=== PATIENT | male | born 1950 | race Caucasian/White ===

== ENCOUNTER 2018-03-03 20:36 | Observation (INO) ==
[2018-03-04 05:54] LABS: Basophils % 0.6 % (0.1-2.0); Eosinophils # 0.1 K/mm3 (0.0-0.4); Eosinophils % 1.6 % (0.1-12.0); Hemoglobin 15.3 g/dL (14.1-18.0); Lymphocytes # 1.9 K/mm3 (0.7-4.5); Lymphocytes % 31.3 % (10-50); Mean Corpuscular HGB Conc 33.3 g/dL (31.8-35.4); Mean Corpuscular Hemoglobin 35.7 pg (27.0-31.2); Mean Corpuscular Volume 107.4 fl (80-94); Mean Platelet Volume 11.5 fl (7.4-10.4); Monocytes # 0.4 K/mm3 (0.1-1.0); Monocytes % 7.2 % (1.7-9.3); Neutrophils # 3.5 K/mm3 (1.8-7.8); Neutrophils % 59.3 % (37.0-80.0); Platelet Count 72 K/mm3 (142-424); Red Blood Count 4.28 M/mm3 (4.60-6.20); Red Cell Distribution Width 14.2 % (11.5-17.5); White Blood Count 5.9 K/mm3 (4.8-10.8)
[2018-03-04 06:04] LABS: Anion Gap 16.1 mEq/L (5-15); Calcium 8.9 mg/dL (8.5-10.1); Potassium 3.1 mmoL/L (3.5-5.1)
[2018-03-04 06:21] LABS: T4 (Thyroxine) 9.4 ug/dl (4.7-13.3); Thyroid Stimulating Hormone 4.4 uIU/ml (0.358-3.740)
--- NOTE | 2018-03-04 07:46 | Pharmacy Consult Notes ---
[facility] Pharmacy VTE Monitoring - Patient Demographics Allergies/Adverse Reactions: Patient Allergies heparin Allergy (Verified 03/03/18 21:45) Height: 1.8 m Weight: 95.254 kg - VTE Risk Labs: VTE Related Lab Results Hgb 15.3 g/dL (14.1-18.0) 03/04/18 04:40 Hct 46.0 % (42.0-52.0) 03/04/18 04:40 Plt Count 72 K/mm3 (142-424) L 03/04/18 04:40 BUN 13 mg/dL (7-18) 03/04/18 04:40 Creatinine 0.75 mg/dL (0.70-1.30) 03/04/18 04:40 Estimated Creat Clear 98 mL/min (50-200) 03/04/18 04:40 VTE Score: 2 VTE Risk Level: Very Low Risk - Prophylaxis VTE Prophylaxis Ordered?: Yes Types of VTE Prophylaxis: TEDS Knee High Location of Applied Device: Bilateral Lower Extremeties - VTE Diagnosis Confirmed Treatment or plan recommended: Continue Current Treatment
--- NOTE | 2018-03-04 08:43 | Consult Report ---
History of Present Illness Consult date: 03/04/18 Requesting physician: Luis Morris Consult reason: chest pain Chief complaint: A. flutter, chest pain Additional Medical History:: 1. CAD A. 3 vessel CABG, 2001 B. Cardiac cath, 2005, results unavailable C. Preliminary Echo, 02/2018, reduced EF (about 40%)with wall motion abnormalities 2. HTN 3. HLD, on statin 4. Tobacco use, ongoing 5. History of colon polyps with recent endoscopy this 2017 History of present illness: 67 yo WM with CAD/CABG in 2001 transferred from [facility] for chest pain and tachycardia. EKG shows A. flutter with rate in the 120-130's bpm. Symptoms of fast heart rate off and on for a week with recent adjustments in meds without significant improvement. Pt went to ER at [facility] yesterday with subsequent transfer last evening. Initial troponin is mildly elevated at 0.12. Pt has no further chest or neck discomfort this AM. He relates no symptoms prior to CABG in past. Denies diabetes but still smokes. Cardiology consulted for further evaluation. [facility] History Medical History: Reports:: Atrial Fibrillation, Hyperlipidemia, Hypertension, Palpitations Denies:: Cancer, Diabetes Mellitus Type 1, Diabetes Mellitus Type 2, MRSA Other Surgeries: Yes: CABG, Cardiac Catheterization, Cholecystectomy Amputation: No Fractures: No - *Social History Educational Level: Completed High School Smoking Status: Current every day smoker Tobacco Type: cigarettes # Packs/Day (cigarettes): 1 Alcohol Intake: current Occupational Status: retired Household Members: none - Psychiatric History Expresses thoughts of harming self/others: None Suicide Plan Description: No Plan *Family Hx:: Cancer, Thyroid Disorder Meds Home Medications Medication Instructions Recorded Confirmed Type Amlodipine Besylate 5 mg PO DAILY 03/03/18 03/03/18 History Aspirin [Aspirin 81mg EC Tab] 81 mg PO DAILY 03/03/18 03/03/18 History Atorvastatin Calcium [Atorvastatin 20 mg PO DAILY 03/03/18 03/03/18 History 20mg Tab] Cholecalciferol (Vitamin D3) 2,000 unit PO DAILY 03/03/18 03/03/18 History [Vitamin D3] L.acidoph,Paracasei, B.lactis 1 each PO DAILY 03/03/18 03/03/18 History [Probiotic] Levothyroxine Sodium 175 mcg PO DAILY 03/03/18 03/03/18 History [Levothyroxine 175mcg (0.175mg) Tab] Metoprolol Succinate 150 mg PO DAILY 03/03/18 03/03/18 History [place]-3/Dha/Epa/Fish Oil [[place] 3 520 mg PO DAILY 03/03/18 03/03/18 History 500 Softgel] Ramipril 10 mg PO DAILY 03/03/18 03/03/18 History hydroCHLOROthiazide [HCTZ 12.5mg 12.5 mg PO DAILY 03/03/18 03/03/18 History cap] raNITIdine HCl [Ranitidine HCl] 150 mg PO BID 03/03/18 03/03/18 History Allergies Allergy/AdvReac Type Severity Reaction Status Date / Time heparin Allergy Verified 03/03/18 21:45 Review of Systems - *Cardiovascular Reports chest pain - *Respiratory Reports shortness of breath with activity - *Gastrointestinal Reports heartburn, Reports loose stools - *Genitourinary Denies blood in urine - *Musculoskeletal Denies joint pain Exam Vital signs and Labs for Last 24 Hours: Temp Pulse Resp BP Pulse Ox 98.2 F 92 H 18 146/94 H 98 03/04/18 00:00 03/04/18 04:00 03/04/18 04:00 03/04/18 04:00 03/04/18 04:00 Laboratory Results - last 24 hr 03/04/18 04:40: Troponin I 0.12 H 03/04/18 04:40: WBC 5.9, RBC 4.28 L, Hgb 15.3, Hct 46.0, MCV 107.4 H, MCH 35.7 H , MCHC 33.3, RDW 14.2, Plt Count 72 L, MPV 11.5 H, Neut % (Auto) 59.3, Lymph % (Auto) 31.3, [place] % (Auto) 7.2, Eos % (Auto) 1.6, Baso % (Auto) 0.6, Neut # (Auto) 3.5, Lymph # (Auto) 1.9, [place] # (Auto) 0.4, Eos # (Auto) 0.1, Baso # (Auto) 0.0 03/04/18 04:40: Sodium 137, Potassium 3.1 L, Chloride 99, Carbon Dioxide 25, An ion Gap 16.1 H, BUN 13, Creatinine 0.75, Estimated Creat Clear 98, Estimated GFR 104, Est GFR ( Amer) 126, Glucose 90, Calcium 8.9, Magnesium 2.0, Triglycerides 254 H, Cholesterol 128 L, LDL Cholesterol 35, VLDL Cholesterol 51 H, HDL Cholesterol 42, Cholesterol/HDL Ratio 3.0 03/04/18 04:40: TSH 4.40 H, Thyroxine (T4) 9.4 I & O for Last 24 hours: Intake & Output 03/01/18 03/02/18 03/03/18 03/04/18 11:59 11:59 11:59 11:59 Intake Total 218 / 218 Output Total 250 / 250 Balance -32 / -32 Weight 210 lb - *Routine Neck Exam Present: supple, carotid bruit. Absent: JVD - *Routine Respiratory Exam Present: decreased breath sounds, CTA bilaterally. Absent: accessory muscle use, rales, rhonchi, wheezes - *Routine Cardiovascular Exam Present: RRR, murmur, tachycardia. Absent: gallop, rubs Comments: physiologic split S2 - *Routine Abdominal Exam Present: soft. Absent: tenderness, distended, guarding - *Routine Extremities Exam Absent: edema, calf tenderness - *Routine Neurological Exam Present: alert, oriented X3, moving all extremities Assessment and Plan (1) Atrial flutter with rapid ventricular response Current visit: Yes Status: Acute Category: Medical Code(s): I48.92 - Unspecified atrial flutter (2) Acute [place] Current visit: Yes Status: Acute Category: Medical Code(s): I21.9 - Acute myocardial infarction, unspecified (3) Hypertension Current visit: Yes Status: Acute Category: Medical Code(s): I10 - Essential (primary) hypertension (4) Hyperlipidemia Current visit: Yes Status: Acute Category: Medical Code(s): E78.5 - Hy perlipidemia, unspecified (5) Diarrhea Current visit: Yes Status: Acute Category: Medical Code(s): R19.7 - Diarrhea, unspecified (6) History of coronary artery bypass graft x 3 Current visit: Yes Status: Acute Category: Surgical Code(s): Z95.1 - Presence of aortocoronary bypass graft (7) RBBB Current visit: Yes Status: Acute Category: Medical Code(s): I45.10 - Unspecified right bundle-branch block (8) Cardiomyopathy Current visit: Yes Status: Acute Category: Medical Code(s): I42.9 - Cardiomyopathy, unspecified - Assessment and plan all Dx Assessment and Plan for all problems:: 1. Will switch to bisoprolol for rate control. Stop lopressor 2. Recommend LHC due to elevated troponin in setting of known CAD with CABG 16 yrs ago 3. Immodium for diarrhea 4. Resume other home meds 5. Echo results pending but preliminary shows reduced with wall motion abnormali ties likely related to CABG
--- NOTE | 2018-03-04 16:11 | History & Physical Report ---
*Admission Date: 03/04/18 *Chief complaint: chest pain *History of present illness: 67 yo WM with CAD/CABG in 2001 transferred from [facility] for chest pain and tachycardia. EKG shows A. flutter with rate in the 120-130's bpm. Symptoms of fast heart rate off and on for a week with recent adjustments in meds without significant improvement. Pt went to ER at [facility] yesterday with subsequent transfer last evening. Initial troponin is mildly elevated at 0.12. Pt has no further chest or neck discomfort this AM. He relates no symptoms prior to CABG in past. Denies diabetes but still smokes. Cardiology consulted for further evaluation. [facility] History I have reviewed the patient's past medical history: Yes Medical History: Reports:: Atrial Fibrillation, Hyperlipidemia, Hypertension, Palpitations Denies:: Cancer, Diabetes Mellitus Type 1, Diabetes Mellitus Type 2, MRSA Other Surgeries: Yes: CABG, Cardiac Catheterization, Cholecystectomy Amputation: No Fractures: No - *Social History Educational Level: Completed High School Smoking Status: Current every day smoker Tobacco Type: cigarettes # Packs/Day (cigarettes): 1 Alcohol Intake: current Occupational Status: retired Household Members: none - Psychiatric History Expresses thoughts of harming self/others: None Suicide Plan Description: No Plan *Family Hx:: Cancer, Thyroid Disorder Review of Systems - Review of Systems Review of systems:: pertinent systems reviewed and negative unless documented below - Constitutional Denies body ache(s) - Eyes Denies bulging eyes - ENT Denies bleeding gums - *Cardiovascular Reports chest pain at rest, Reports chest pain with activity, Reports shortness of breath, Reports radiating jaw, neck or arm pain, Denies rapid, pounding, or irregular heartbeat - *Respiratory Reports shortness of breath with activity - *Gastrointestinal Denies change in bowel habits - *Genitourinary Denies urinary urgency - *Musculoskeletal Denies body aches - Integumentary/Breasts Denies rash - *Neurologic Denies localized weakness - Psychiatric Denies anxiety - Endocrine Denies increased thirst - Hematologic/Lymphatic Denies enlarged lymph nodes - Allergic/Immunologic Denies tongue swelling Meds Home Medications Medication Instructions Recorded Confirmed Type Amlodipine Besylate 5 mg PO DAILY 03/03/18 03/03/18 History Aspirin [Aspirin 81mg EC Tab] 81 mg PO DAILY 03/03/18 03/03/18 History Atorvastatin Calcium [Atorvastatin 20 mg PO DAILY 03/03/18 03/03/18 History 20mg Tab] Cholecalciferol (Vitamin D3) 2,000 unit PO DAILY 03/03/18 03/03/18 History [Vitamin D3] L.acidoph,Paracasei, B.lactis 1 each PO DAILY 03/03/18 03/03/18 History [Probiotic] Levothyroxine Sodium 175 mcg PO DAILY 03/03/18 03/03/18 History [Levothyroxine 175mcg (0.175mg) Tab] Metoprolol Succinate 150 mg PO DAILY 03/03/18 03/03/18 History [place]-3/Dha/Epa/Fish Oil [[place] 3 520 mg PO DAILY 03/03/18 03/03/18 History 500 Softgel] Ramipril 10 mg PO DAILY 03/03/18 03/03/18 History hydroCHLOROthiazide [HCTZ 12.5mg 12.5 mg PO DAILY 03/03/18 03/03/18 History cap] raNITIdine HCl [Ranitidine HCl] 150 mg PO BID 03/03/18 03/03/18 History Allergies Allergy/AdvReac Type Severity Reaction Status Date / Time heparin Allergy Verified 03/03/18 21:45 Exam Vital signs and Labs for Last 24 Hours: Temp Pulse Resp BP Pulse Ox 97.6 F 119 H 12 200/65 H 96 03/04/18 14:30 03/04/18 15:30 03/04/18 15:30 03/04/18 15:30 03/04/18 15:30 Laboratory Results - last 24 hr 03/04/18 04:40: Troponin I 0.12 H 03/04/18 04:40: WBC 5.9, RBC 4.28 L, Hgb 15.3, Hct 46.0, MCV 107.4 H, MCH 35.7 H , MCHC 33.3, RDW 14.2, Plt Count 72 L, MPV 11.5 H, Neut % (Auto) 59.3, Lymph % (Auto) 31.3, [place] % (Auto) 7.2, Eos % (Auto) 1.6, Baso % (Auto) 0.6, Neut # (Auto) 3.5, Lymph # (Auto) 1.9, [place] # (Auto) 0.4, Eos # (Auto) 0.1, Baso # (Auto) 0.0 03/04/18 04:40: Sodium 137, Potassium 3.1 L, Chloride 99, Carbon Dioxide 25, Anion Gap 16.1 H, BUN 13, Creatinine 0.75, Estimated Creat Clear 98, Estimated GFR 104, Est GFR ( Amer) 126, Glucose 90, Calcium 8.9, Magnesium 2.0, Triglycerides 254 H, Cholesterol 128 L, LDL Cholesterol 35, VLDL Cholesterol 51 H, HDL Cholesterol 42, Cholesterol/HDL Ratio 3.0 03/04/18 04:40: TSH 4.40 H, Thyroxine (T4) 9.4 I & O for Last 24 hours: Intake & Output 03/02/18 03/03/18 03/04/18 03/05/18 11:59 11:59 11:59 11:59 Intake Total 218 / 218 Output Total 250 / 250 Balance -32 / -32 Weight 210 lb - *Routine HEENT Exam Head: Present: normocephalic Eye: Present: PERRL ENT: Present: mucous membranes moist - *Routine Neck Exam Present: supple. Absent: lymphadenopathy - *Routine Respiratory Exam Present: CTA bilaterally - *Routine Cardiovascular Exam Present: irregular rhythm - *Routine Abdominal Exam Present: soft, normoactive bowel sounds. Absent: tenderness - *Routine Extremities Exam Absent: cyanosis, clubbing, edema - *Routine Skin Exam Present: warm. Absent: rash - *Routine Neurological Exam Present: alert, oriented X3 Assessment and Plan (1) Atrial flutter with rapid ventricular response Current visit: Yes Status: Acute Category: Medical Code(s): I48.92 - Unspecified atrial flutter (2) Acute [place] Current visit: Yes Status: Acute Category: Medical Code(s): I21.9 - Acute myocardial infarction, unspecified (3) Hypertension Current visit: Yes Status: Acute Category: Medical Code(s): I10 - Essential (primary) hypertension (4) Hyperlipidemia Current visit: Yes Status: Acute Category: Medical Code(s): E78.5 - Hyperlipidemia, unspecified (5) Diarrhea Current visit: Yes Status: Acute Category: Medical Code(s): R19.7 - Diarrhea, unspecified (6) History of coronary artery bypass graft x 3 Current visit: Yes Status: Acute Category: Surgical Code(s): Z95.1 - Presence of aortocoronary bypass graft (7) RBBB Current visit: Yes Status: Acute Category: Medical Code(s): I45.10 - Unspecified right bundle-branch block (8) Cardiomyopathy Current visit: Yes Status: Acute Category: Medical Code(s): I42.9 - Cardiomyopathy, unspecified - Assessment and plan all Dx Assessment and Plan for all problems:: rounded with michela all orders per michela
[2018-03-05 06:04] LABS: Hematocrit 45.2 % (42.0-52.0); Hemoglobin 14.9 g/dL (14.1-18.0)
[2018-03-05 08:12] LABS: Calcium 8.6 mg/dL (8.5-10.1)
--- NOTE | 2018-03-05 08:47 | Discharge Summary ---
General - General Admission date:: 03/04/18 Discharge date: 03/05/18 HPI HPI: 67 yo WM with CAD/CABG in 2001 transferred from [facility] for chest pain and tachycardia. EKG shows A. flutter with rate in the 120-130's bpm. Symptoms of fast heart rate off and on for a week with recent adjustments in meds without significant improvement. Pt went to ER at [facility] yesterday with subsequent transfer last evening. Initial troponin is mildly elevated at 0.12. Pt has no further chest or neck discomfort this AM. He relates no symptoms prior to CABG in past. Denies diabetes but still smokes. Cardiology consulted for further evaluation. Hospital Course Hospital Course: pt was admitted on on tele and was seen by cyril Fox. 3 vessel CABG, 2001 B. Cardiac cath, 2005, results unavailable C. Preliminary Echo, 02/2018, reduced EF (about 40%)with wall motion abnormalities 2. HTN 3. HLD, on statin 4. Tobacco use, ongoing 5. History of colon polyps with recent endoscopy this 2017 History of present illness: 67 yo WM with CAD/CABG in 2001 transferred from [facility] for chest pain and tachycardia. EKG shows A. flutter with rate in the 120-130's bpm. Symptoms of fast heart rate off and on for a week with recent adjustments in meds without significant improvement. Pt went to ER at [facility] yesterday with subsequent transfer last evening. Initial troponin is mildly elevated at 0.12. Pt has no further chest or neck discomfort this AM. He relates no symptoms prior to CABG in past. Denies diabetes but still smokes. Cardiology consulted for further evaluatio pt had recommendation -ll switch to bisoprolol for rate control. Stop lopressor 2. Recommend LHC due to elevated troponin in setting of known CAD with CABG 16 yrs ago 3. Immodium for diarrhea 4. Resume other home meds 5. Echo results pending but preliminary shows reduced with wall motion abnormalities likely related to CABG pt underwent cath- The left main artery has distal concentric 80% stenosis 2. The left anterior descending artery has proximal 20% stenosis then occluded at mid vessel after second septal contracting analyst 3. The circumflex artery ostially occluded 4. The right coronary artery has proximal 90% stenosis and then occluded at mid vessel 5. The GALLEGOS ventriculogram reveals preserved ejection fraction estimated at 55-60% 6. The left ventricular end-diastolic pressure 10 mmHg 7. The left internal mammary artery iswidely patent to the mid LAD 8. The saphenous vein graft to the circumflex artery is a large caliber graft with a distal 80-90% concentric stenosis. This obtuse marginal artery anastomosis on to a first obtuse marginal artery and then backfills to large obtuse marginal arteries 9. The saphenous vein graft to the is a widely patent graft with a proximal 30-40% nonflow limiting stenosis. This supplies a single posterior descending artery with no backfilling of the [place] right coronary artery IMPRESSION: 1. Coronary artery disease as described above 2. Severe disease in the saphenous vein graft supplying the large dominant circumflex artery 3. Successful stenting of the saphenous vein graft supplying the dominant circumflex artery severe disease reduced to 0% with 1 drug-eluting stent 4. Patent DUNN to the LAD 5. Patent saphenous vein graft with mild to moderate nonflow limiting disease in the proximal graft disease supplying the moderate-sized posterior descending artery 6. Preserved ejection fraction 7. Normal left ventricular end-diastolic pressure spirin and Plavix plus Xarelto 20 mg daily for one month then discontinue the aspirin 2. Cardiac rehabilitation 3. Avoidance of tobacco products 4. Risk factor modification 5. Control of atrial fibrillation flutter with rate controlling medications 6. Follow-up with primary block inspector Dr. Yisel Barnett in one month pt feels better today and will be d/c to follow with pcp and card Objective Vital signs: Temp Pulse Resp BP Pulse Ox 98.1 F 100 H 14 141/93 H 95 03/05/18 07:41 03/05/18 08:00 03/05/18 07:41 03/05/18 07:41 03/05/18 07:41 no acute distress, average body habitus - *Routine HEENT Exam Head: Present: normocephalic Eye: Present: EOMI, PERRL ENT: Present: mucous membranes dry - *Routine Neck Exam Present: supple, lymphadenopathy. Absent: JVD - *Routine Respiratory Exam Present: CTA bilaterally - *Routine Cardiovascular Exam Present: RRR, murmur - *Routine Abdominal Exam Present: soft - *Routine Extremities Exam Present: full ROM - *Routine Skin Exam Present: intact - *Routine Neurological Exam Present: alert, oriented X3, CN II-XII intact - Routine Psychiatric Exam Present: normal affect Results Labs on day of discharge: Labs from last 24 hours 03/05/18 03/05/18 05:35 05:35 Hgb 14.9 Hct 45.2 Sodium 138 Potassium 4.0 D Chloride 103 Carbon Dioxide 24 Anion Gap 15.0 BUN 14 Creatinine 0.82 Estimated Creat Clear 100 Estimated GFR 94 Est GFR ( Amer) 114 Glucose 99 Calcium 8.6 DS: Diagnosis - Discharge Diagnosis (1) Atrial flutter with rapid ventricular response Status: Acute (2) Acute [place] Status: Acute (3) Hypertension Status: Acute (4) Hyperlipidemia Status: Acute (5) Diarrhea Status: Acute (6) History of coronary artery bypass graft x 3 Status: Acute (7) RBBB Status: Acute (8) Cardiomyopathy Status: Acute Discharge Plan - Patient Discharge Instructions DIET: continue same diet Patient Instructions: Heart Attack, Cardiomyopathy, Cardiac Catheterization, Coronary Stenting, High Blood Pressure, Atrial Flutter, DI for Atrial Flutter, DI for Cardiac Catheterization, DI for Coronary Stenting, DI for Cardiomyopathy, DI for High Blood Pressure, DI for Surgical Site Infection, Surgical Site Infection, How to Quit Smoking - Follow up Plan Follow up with: Perfecto Foster MD [Staff Physician] - 03/11/18 12:40 pm Disposition: Home, Self-Senior Living Medications: Home Medications Medication Instructions Recorded Confirmed Type Amlodipine Besylate 5 mg PO DAILY 03/03/18 03/03/18 History Aspirin [Aspirin 81mg EC Tab] 81 mg PO DAILY 03/03/18 03/03/18 History Atorvastatin Calcium [Atorvastatin 20 mg PO DAILY 03/03/18 03/03/18 History 20mg Tab] Cholecalciferol (Vitamin D3) 2,000 unit PO DAILY 03/03/18 03/03/18 History [Vitamin D3] L.acidoph,Paracasei, B.lactis 1 each PO DAILY 03/03/18 03/03/18 History [Probiotic] Levothyroxine Sodium 175 mcg PO DAILY 03/03/18 03/03/18 History [Levothyroxine 175mcg (0.175mg) Tab] Metoprolol Succinate 150 mg PO DAILY 03/03/18 03/03/18 History [place]-3/Dha/Epa/Fish Oil [[place] 3 520 mg PO DAILY 03/03/18 03/03/18 History 500 Softgel] Ramipril 10 mg PO DAILY 03/03/18 03/03/18 History hydroCHLOROthiazide [HCTZ 12.5mg 12.5 mg PO DAILY 03/03/18 03/03/18 History cap] raNITIdine HCl [Ranitidine HCl] 150 mg PO BID 03/03/18 03/03/18 History Prescriptions/Medication Reconciliation: New Bisoprolol Fumarate [Zebeta 5mg tablet] 10 mg PO BID #60 tablet Nicotine [Nicoderm 21mg/24hr patch] 21 mg TD DAILY #30 patch.td24 Rivaroxaban [Xarelto 10mg tablet] 20 mg PO QPMWM #30 tablet Ramipril [Altace 5mg capsule] 5 mg PO BID capsule Continue Cholecalciferol (Vitamin D3) [Vitamin D3] 2,000 unit PO DAILY Aspirin [Aspirin 81mg EC Tab] 81 mg PO DAILY Levothyroxine Sodium [Levothyroxine 175mcg (0.175mg) Tab] 175 mcg PO DAILY Atorvastatin Calcium [Atorvastatin 20mg Tab] 20 mg PO DAILY Ramipril 10 mg PO DAILY L.acidoph,Paracasei, B.lactis [Probiotic] 1 each PO DAILY [place]-3/Dha/Epa/Fish Oil [[place] 3 500 Softgel] 520 mg PO DAILY raNITIdine HCl [Ranitidine HCl] 150 mg PO BID Discontinued Metoprolol Succinate 150 mg PO DAILY hydroCHLOROthiazide [HCTZ 12.5mg cap] 12.5 mg PO DAILY Amlodipine Besylate 5 mg PO DAILY
--- NOTE | 2018-03-05 08:53 | Progress Note ---
Subjective Date: 03/05/18 Time: 08:49 Principal diagnosis: Acute SC Interval history: 67-year-old white male in bed in no acute distress. States he feels much better this morning. No further diarrhea. He is ready to go home. Telemetry still shows atrial flutter with controlled rate in the 70s and 90s beats per minute range Exam Vital signs and Labs for Last 24 Hours: Temp Pulse Resp BP Pulse Ox 98.1 F 100 H 14 141/93 H 95 03/05/18 07:41 03/05/18 08:00 03/05/18 07:41 03/05/18 07:41 03/05/18 07:41 Laboratory Results - last 24 hr 03/05/18 05:35: Hgb 14.9, Hct 45.2 03/05/18 05:35: Sodium 138, Potassium 4.0 D, Chloride 103, Carbon Dioxide 24, Anion Gap 15.0, BUN 14, Creatinine 0.82, Estimated Creat Clear 100, Estimated GFR 94, Est GFR ( Amer) 114, Glucose 99, Calcium 8.6 I & O for Last 24 hours: Intake & Output 03/02/18 03/03/18 03/04/18 03/05/18 11:59 11:59 11:59 11:59 Intake Total 218 / 218 2110 / 2110 Output Total 250 / 250 400 / 400 Balance -32 / -32 1710 / 1710 Weight 210 lb 214 lb - *Routine Respiratory Exam Present: CTA bilaterally. Absent: accessory muscle use, rales, rhonchi, wheezes - *Routine Cardiovascular Exam Present: RRR, irregular rhythm. Absent: murmur, gallop, rubs - *Routine Extremities Exam Absent: edema, calf tenderness Progress Note: A&P (1) Atrial flutter with rapid ventricular response Status: Acute Current Visit: Yes (2) Acute [place] Status: Acute Current Visit: Yes (3) Hypertension Status: Acute Current Visit: Yes (4) Hyperlipidemia Status: Acute Current Visit: Yes (5) Diarrhea Status: Acute Current Visit: Yes (6) History of coronary artery bypass graft x 3 Status: Acute Current Visit: Yes (7) RBBB Status: Acute Current Visit: Yes (8) Cardiomyopathy Status: Acute Current Visit: Yes Assessment and Plan for All Diagnoses:: 1. Patient did receive a stent to his vein graft to the circumflex artery system. He should be on aspirin and Plavix for 30 days and then discontinue aspirin due to Xarelto therapy for atrial flutter. 2. Atrial flutter with controlled ventricular response, on bisoprolol and Xarelto therapy consider STEPHIE/cardioversion in 30 days. 3. Recommendation for home medications Ramipril 5 mg twice daily for 10 mg once daily Bisoprolol 10 mg twice daily Xarelto 20 mg daily with largest meal of the day Aspirin 1 mg daily Plavix 75 mg daily Atorvastatin 20 mg daily 4. Follow-up with Dr. Barnett in 1 week for wound check.
== END 2018-03-05 09:35 | disposition home or self-care (01) ==
LOC: ICU
PROVIDERS: ADMIT Emergency Medicine; ATTEND Emergency Medicine

== ENCOUNTER 2018-03-19 13:40 | Outpatient (RCR) | payer MEDICARE, SELFPAY | END 2018-07-09 08:54 | disposition home or self-care (01) | LOC: PT 13:40 | PROVIDERS: Visit Provider Internal Medicine | DX: Z95.5 Presence of coronary angioplasty implant and graft (principal) | CPT/HCPCS: 93798 ==

== ENCOUNTER → 2018-03-31 14:15 | Outpatient (CLI) | payer MEDICARE, SELFPAY ==
--- NOTE | 2018-03-31 14:29 | XR_ITS ---
XR chest 2V HISTORY: Cough. ITS.REASON: SOB, Exertional hypemia ORDERING PHYSICIAN: NATALIYA Braden PATIENT AGE: 67 years Technique: 2 view chest PA lateral .: COMPARISON is made to 03/04/2018 AP CXR FINDINGS: Small bilateral pleural effusions right greater than left. Fluid tracks along the lateral right chest with some fluid within the major & minor fissure. On right. There is a hazy infiltrate likely present at the right midlung and right base involving right lower lobe. Likely pneumonic infiltrate. The heart is normal size. Previous sternotomy and CABG. Tortuous descending aorta again noted. Ivone and mediastinal structures unremarkable. Chest wall unremarkable IMPRESSION-------- Small bilateral pleural effusions right more evident the left Minimal pneumonic infiltrate likely present mainly involving the right lung base but it extending to the right midlung, right perihilar region.. Correlation required.
[2018-03-31 15:42] LABS: Anion Gap 14.8 mEq/L (5-15); Blood Urea Nitrogen 14 mg/dL (7-18); Calcium 8.7 mg/dL (8.5-10.1); Carbon Dioxide 24 mmol/L (21.0-32.0); Chloride 105 mmol/L (98-107); Creatinine,Serum 1.04 mg/dL (0.70-1.30); Estimated Glomerular Filt Rate 71 ml/min (>60); GFR (African American) 86 ML/MIN (>60); Glucose 86 mg/dL (74-106); Potassium 3.8 mmoL/L (3.5-5.1); Sodium 140 mmol/L (136-145)
== END ==
PROVIDERS: Visit Provider Physician Assistant
DX: R06.02 Shortness of breath (principal); R09.02 Hypoxemia
CPT/HCPCS: 36415; 71046; 80048; 83880

== ENCOUNTER → 2018-04-17 07:14 | Outpatient (CLI) | payer MEDICARE, SELFPAY ==
--- NOTE | 2018-04-17 07:19 | AS_ITS ---
Renal Arterial Duplex Indications: 405.91 Unspecified renovascular hypertension. IMPRESSIONS 1. The right renal artery appears normal. 2. The left renal artery appears normal. 3. Elevated RI's bilateral kidneys, 0.8. History: Risk factors: Hypertension. Coronary artery disease. Prior angiography/angioplasty. Complete renal arterial duplex. Duplex scan and Doppler flow study including spectral analysis, color and chatman scale imaging. Height: Height: 180.3cm. Height: 71in. Weight: Weight: 95.3kg. Weight: 209.6lb. Body mass index: BMI: 29.3kg/m^2. Body surface area: BSA: 2.21m^2. Location: Vascular laboratory. Patient status: Outpatient. Tables: Arterial flow: + +--------+--------+ Location V sys V ed + +--------+--------+ Right renal - proximal 113cm/s 20.5cm/s + +--------+--------+ Right renal - mid 88.2cm/s 19.1cm/s + +--------+--------+ Right renal - distal 72.4cm/s 19.1cm/s + +--------+--------+ Left renal - proximal 138cm/s 25.9cm/s + +--------+--------+ Left renal - mid 177cm/s 39.6cm/s + +--------+--------+ Left renal - distal 172cm/s 34.8cm/s + +--------+--------+ Renal anatomy: + +-------+-------+ Left Right + +-------+-------+ Long axis 12.76cm 12.06cm + +-------+-------+ Short axis 6.74cm 6.74cm + +-------+-------+ Cortical thickness 2cm 1.7cm + +-------+-------+ Velocity ratios: + +-----+ V sys + +-----+ Right renal/aortic 1.9 + +-----+ Left renal/aortic 1.2 + +-----+ (Report amended ) Electronically signed by: Cristo Aden [id number]
== END ==
PROVIDERS: PCP Family Medicine; Visit Provider Nurse Practitioner Family
DX: I10 Essential (primary) hypertension (principal); I15.0 Renovascular hypertension
CPT/HCPCS: 93976

== ENCOUNTER → 2018-07-22 13:09 | Outpatient (CLI) | payer MEDICARE, SELFPAY ==
--- NOTE | 2018-07-22 13:16 | CT_ITS ---
CT lung screening EXAM: CT LUNG LOW DOSE WO CONTRAST HISTORY: 46 pack year smoking history asymptomatic for lung cancer ITS.REASON: CURRENT TOBACCO USE ORDERING PHYSICIAN: Yazan Castellanos MD PATIENT AGE: 67 years COMPARISON: None TECHNIQUE: The exam was performed on a GE Light Speed [address] scanner using 2.90 mGy CTDI. A low dose helical CT CHEST was performed on a multi-detector scanner. All CT scans at the facility use one or more dose reduction, viz: automated exposure control, ma/kV adjustment per patient size (including targeted exams where dose is matched to indication, i.e. head), or iterative reconstruction technique. The LDCT was performed in a facility that meets the criteria for the screening program. Data regarding this exam was submitted to ACR which is an approved registry. The order for this exam indicates that it came as a result of a lung cancer screening counseling shard decision-making visit that included all the elements required of such a visit including smoking cessation. The radiologist interpreting this exam meets the [facility] criteria for the LDCT lung cancer screening program. The exam is reported using the Lung-RADS classification scale and reported to the ACR registry. NOTE: This study was performed for the specific purposes of lung cancer screening and is not an alternative to diagnostic chest CT. RADIATION DOSE: CTDI vol(CT dose Index-volume) = 2.90mG DLP (Dose Length Product) = 108.12 mGcm FINDINGS: There has been a prior CABG. Coronary artery calcifications and tortuosity/ectasia of the thoracic aorta is noted. Changes of COPD with mild coarsening of bronchovascular markings. There is a nodule present in the right minor fissure at 5 mm x 6 mm but with some fissural indentation. 6 mm nodule right middle lobe. 6 mm nodule right upper lobe centrally S 4 #33. 7 mm nodule left lower lobe S4 #1. 5 mm nodule left upper lobe s 4 #33. There are centrilobular emphysematous changes in the lower lobes. Mild gynecomastia Degenerative disc disease thoracic spine with mild ridging posteriorly at T4-T5. IMPRESSION: 1. Lung RADS Category: 3, probably benign 2. Other findings: COPD, coronary artery disease, centrilobular edema RECOMMENDATIONS: [address] follow-up
== END ==
PROVIDERS: PCP Family Medicine; Visit Provider Family Medicine
DX: Z12.2 Encounter for screening for malignant neoplasm of respiratory organs (principal); Z87.891 Personal history of nicotine dependence

== ENCOUNTER 2019-03-14 17:34 | Inpatient (IN) ==
--- NOTE | 2019-03-14 17:36 | Emergency Department Note ---
ED Disposition Clinical Impression: Acute coronary syndrome Disposition: Admitted as Observation Condition on Discharge: Fair Referrals: Provider,Referral, [Referring] - - Critical Care Critical Care Time: No Attestation: On , the high probability of a clinically significant, sudden or life threate prabhjot deterioration of the following system(s) required my full and direct attention, intervention and personal management. The time I documented below is in addition to time spent performing reported procedures but includes the following listed in this critical care notation. Medical Decision Making - Christo Inquiry Pt receiving controlled substance: No Vital Signs: 03/14/19 17:32 03/14/19 17:56 Temperature 98.7 F Temperature Source Oral Pulse Rate [Right Radial] 84 65 Respiratory Rate 18 16 Blood Pressure [Right Arm] 171/71 H 172/79 H Blood Pressure Mean [Right Arm] 104 110 Blood Pressure Source [Right Arm] Automatic Cuff Automatic Cuff Blood Pressure Position [Right Arm] Sitting Supine 02 Sat by Pulse Oximetry 97 95 Oxygen Delivery Method Room Air Room Air - Lab Data Lab Results 03/14/19 17:30: WBC 5.1, RBC 3.87 L, Hgb 13.6 L, Hct 41.0 L, MCV 106.0 H, MCH 35.0 H, MCHC 33.0, RDW 13.6, Plt Count 82 L, MPV 10.9 H, Neut % (Auto) 63.5, Lymph % (Auto) 24.8, [place] % (Auto) 8.9, Eos % (Auto) 2.1, Baso % (Auto) 0.7, Neut # (Auto) 3.2, Lymph # (Auto) 1.3, Barren # (Auto) 0.5, Eos # (Auto) 0.1, Baso # (Auto) 0.0 03/14/19 17:30: Sodium 144, Potassium 3.3 L, Chloride 107, Carbon Dioxide 24, Anion Gap 16.3 H, BUN 15, Creatinine 1.32 H, Estimated Creat Clear 70, Estimated GFR 54 L, Est GFR ( Amer) 65, Glucose 104, Calcium 9.2, Troponin I 0.07 H Result diagrams: 03/14/19 17:30 03/14/19 17:30 Orders (Tests/Meds): ED MEDICATIONS Discontinued Medications Generic Name Dose Route Start Last Admin Trade Name Freq PRN Reason Stop Dose Admin Nitroglycerin 1 gm 03/14/19 17:48 03/14/19 17:59 Nitroglycerin 1 Inch Oint Udp TD 03/14/19 17:49 1 gm ONCE ONE Administration ORDERS Category Date Time Status XR chest 2V Stat Exams 03/14/19 17:39 Taken BMP [Basic Metabolic Panel] Stat Lab 03/14/19 17:30 Results TSH [Thyroid Stimulating Hormone] Stat Lab 03/14/19 17:30 Results Troponin I Q3H Lab 03/14/19 20:45 Ordered Troponin I Q3H Lab 03/14/19 23:45 Ordered Troponin I Stat Lab 03/14/19 17:30 Results - Radiology Data #1 Image(s): Chest Image Reviewed: Yes I reviewed the patient's radiology image Prior coronary artery bypass grafting, no acute process - ECG Data Tracing #1 EKG interpreted by Maurilio Jorge MD: Rhythm: Atrial fibrillation Rate: 71 [place]: Left Ectopy: none Conduction: Right bundle branch block, chronic ST Segment Changes: none T Wave Changes: none Q Waves: none No evidence of acute ischemia or injury Baseline artifact present, but I consider the EKG adequate for accurate interpretation. - Physician Consults Physician Consulted: Krsitin Time: 18:11 Reason -: Cardiology Eval/Care Comment/Response: Admit, serial cardiac enzymes. Nitropaste. Additional Consult: Jesus Castellanos Time: 18:15 Reason -: Admission Comment/Response: Agrees to admit the patient to the hospital. We discussed the patient's clinical information, including history, exam, laboratory and radiology results and ED course. Per hospital procedure, I will write temporary bridge inpatient orders on the patient. Specific orders requested by the admitting physician: Per cardiology - GEE Score for Non-Stemi Age of Patient: 60-69 years old Heart Rate: 70-89 bpm Systolic Blood Pressure: 160-199 mmHg Serum Creatinine: 1.20-1.59 mg/dl CHF [place] Class: I-No CHF Other Risk Factors: Elevated Cardiac Enzymes or Biomarkers Non-Stemi Risk Score: 101 Medical Decision Narrative: Prior heart cath: ANGIOGRAPHIC RESULTS: 1. The left main artery has distal concentric 80% stenosis 2. The left anterior descending artery has proximal 20% stenosis then occluded at mid vessel after second septal education program associate 3. The circumflex artery ostially occluded 4. The right coronary artery has proximal 90% stenosis and then occluded at mid vessel 5. The GALLEGOS ventriculogram reveals preserved ejection fraction estimated at 55-60% 6. The left ventricular end-diastolic pressure 10 mmHg 7. The left internal mammary artery iswidely patent to the mid LAD 8. The saphenous vein graft to the circumflex artery is a large caliber graft with a distal 80-90% concentric stenosis. This obtuse marginal artery anastomosis on to a first obtuse marginal artery and then backfills to large obtuse marginal arteries 9. The saphenous vein graft to the is a widely patent graft with a proximal 30-40% nonflow limiting stenosis. This supplies a single posterior descending artery with no backfilling of the [place] right coronary artery IMPRESSION: 1. Coronary artery disease as described above 2. Severe disease in the saphenous vein graft supplying the large dominant circumflex artery 3. Successful stenting of the saphenous vein graft supplying the dominant circumflex artery severe disease reduced to 0% with 1 drug-eluting stent 4. Patent DUNN to the LAD 5. Patent saphenous vein graft with mild to moderate nonflow limiting disease in the proximal graft disease supplying the moderate-sized posterior descending artery 6. Preserved ejection fraction 7. Normal left ventricular end-diastolic pressure PLAN: 1. Aspirin and Plavix plus Xarelto 20 mg daily for one month then discontinue the aspirin 2. Cardiac rehabilitation 3. Avoidance of tobacco products 4. Risk factor modification 5. Control of atrial fibrillation flutter with rate controlling medications 6. Follow-up with primary fun house operator Dr. Yisel Barnett in one month Carbon copy to Dr. Barnett Dictated By: Perfecto Foster MD Signed By: <Electronically signed by Perfecto Foster MD in OV> 03/04/18 1410 General Adult HPI - General Chief complaint: Chest Pain Stated complaint: CP Time Seen by Provider: 03/14/19 17:35 - History of Present Illness HPI narrative: The patient says that he began developing neck pain today, then pain into his shoulder blades, then sternal area chest pain. His , who is an RN, took his blood pressure 3 times and his systolic was in the range of 215 each time. She says she could see his carotids pounding in his neck. They called 911 and he was given aspirin and nitroglycerin during transport. His pain resolved and he is currently discomfort free. Total duration of pain was about an hour and a half. Denies shortness of breath, nausea, diaphoresis. Has prior history of coronary to bypass surgery, stent placed in [address] grafts by Dr. Foster last year. History of atrial fibrillation/flutter. - Related Data Home Medications Medication Instructions Recorded Confirmed Levothyroxine Sodium 175 mcg PO DAILY 03/03/18 03/14/19 [Levothyroxine 175mcg (0.175mg) Tab] raNITIdine HCl [Ranitidine HCl] 150 mg PO BID 03/03/18 03/14/19 omega 1-dzf-tmi-fish oil 500 mg 1 cap PO QID cap 03/11/18 03/14/19 (200mg-300mg)-1,000 mg capsule loratadine 10 mg tablet 10 mg PO DAILY 11/20/18 03/14/19 Losartan Potassium 50 mg PO DAILY 03/14/19 03/14/19 Previous Rx's Medication Instructions Recorded clopidogrel 75 mg tablet 75 mg PO DAILY #30 tab 08/29/18 isosorbide mononitrate ER 60 mg 60 mg PO DAILY #30 tab 09/05/18 tablet,extended release 24 hr nifedipine ER 60 mg 60 mg PO DAILY #90 tab 10/27/18 tablet,extended release 24 hr rivaroxaban 20 mg tablet 20 mg PO DAILY #30 tab 10/27/18 Allergies Allergy/AdvReac Type Severity Reaction Status Date / Time heparin Allergy Verified 01/14/19 09:48 [facility] History - Hepatitis A Screen Attestation statement:: This patient has been screened for Hepatitis A risk factors. I have reviewed the patient's past medical history: Yes Medical History: Reports:: Atrial Fibrillation, Hyperlipidemia, Hypertension, Palpitations Denies:: Cancer, Coronary Artery Disease, Diabetes Mellitus Type 1, Diabetes Mellitus Type 2, MRSA Other Surgeries: Yes: CABG, Cardiac Catheterization, Cholecystectomy, Col onoscopy, Coronary Stent Amputation: No Fractures: No - Social History Smoking Status: Current every day smoker Tobacco Type: cigarettes # Packs/Day (cigarettes): 1 #Yrs smoked (if former smoker): 50 Alcohol Intake: current Alcohol Intake Frequency:: holidays/special occasions only Substance Use Type: denies use Occupational Status: retired Household Members: none Family Hx:: Cancer, Thyroid Disorder, Coronary Artery Disease ROS Obtained: Yes All systems reviewed & no additional complaints - Constitutional Constitutional: Denies fever(s) - Cardiovascular Cardiovascular: Reports chest pain, Denies diaphoresis, Reports radiating jaw, neck or arm pain - Respiratory Respiratory: No dyspnea - Gastrointestinal Gastrointestingal: Denies: abdominal pain, nausea, vomiting Physical Exam - General General appearance: alert, in no apparent distress - Head Head exam: atraumatic, normocephalic - Eye Eye exam: Present: normal appearance, EOMI - ENT ENT exam: Present: normal exam, mucous membranes moist - Neck Neck exam: Present: normal inspection, trachea midline - Chest Chest inspection: Present: normal inspection, symmetric chest wall rise - Respiratory Respiratory exam: Present: normal lung sounds bilaterally. Absent: respiratory distress - Cardiovascular Cardiovascular exam: Present: regular rate, irregular rhythm - Abdominal Exam Abdominal exam: Present: soft. Absent: distention, tenderness - Extremities Exam Extremities exam: Present: normal inspection - Neurological Exam Neurological exam: Present: alert, oriented X3 - Psychiatric Psychiatric exam: Present: normal affect, normal mood - Skin Skin exam: Present: warm, dry
[2019-03-14 17:47] LABS: Basophils % 0.7 % (0.1-2.0); Eosinophils # 0.1 K/mm3 (0.0-0.4); Eosinophils % 2.1 % (0.1-12.0); Hemoglobin 13.6 g/dL (14.1-18.0); Lymphocytes # 1.3 K/mm3 (0.7-4.5); Lymphocytes % 24.8 % (10-50); Mean Platelet Volume 10.9 fl (7.4-10.4); Monocytes # 0.5 K/mm3 (0.1-1.0); Monocytes % 8.9 % (1.7-9.3); Neutrophils # 3.2 K/mm3 (1.8-7.8); Neutrophils % 63.5 % (37.0-80.0); Platelet Count 82 K/mm3 (142-424); Red Blood Count 3.87 M/mm3 (4.60-6.20); Red Cell Distribution Width 13.6 % (11.5-17.5); White Blood Count 5.1 K/mm3 (4.8-10.8)
[2019-03-14 18:00] LABS: Anion Gap 16.3 mEq/L (5-15); Calcium 9.2 mg/dL (8.5-10.1)
[2019-03-14 18:58] LABS: Thyroid Stimulating Hormone 0.92 uIU/ml (0.358-3.740)
--- NOTE | 2019-03-15 10:33 | History & Physical Report ---
*Admission Date: 03/14/19 [facility] History Medical History: Reports:: Atrial Fibrillation, Coronary Artery Disease, Hyperlipidemia, Hypertension, Myocardial Infarction, Palpitations Denies:: Cancer, Diabetes Mellitus Type 1, Diabetes Mellitus Type 2, MRSA *Have you ever received a pneumonia vaccine?: No *Have you received a flu vaccine this season?: No Other Medical History: Reports: Arthritis, Hypothyroidism Laterality Cases: Bilateral: Tonsillectomy Other Surgeries: Yes: CABG, Cardiac Catheterization, Cholecystectomy, Colonoscopy, Coronary Stent Amputation: No Fractures: No - *Social History Educational Level: Completed High School Smoking Status: Current every day smoker Tobacco Type: cigarettes # Packs/Day (cigarettes): 1 #Yrs smoked (if former smoker): 50 Alcohol Intake: current Alcohol Intake Frequency:: 0-2 drinks per day Substance Use Type: denies use *Occupational Status:: retired Household Members: none *Travel in the last 8 weeks: None Family Hx:: Heart Attack Meds Home Medications Medication Instructions Recorded Confirmed Type Levothyroxine Sodium 175 mcg PO DAILY 03/03/18 03/15/19 History [Levothyroxine 175mcg (0.175mg) Tab] raNITIdine HCl [Ranitidine HCl] 150 mg PO BID 03/03/18 03/15/19 History omega 6-iuj-pmc-fish oil 500 mg 1 cap PO QID cap 03/11/18 03/15/19 History (200mg-300mg)-1,000 mg capsule clopidogrel 75 mg tablet 75 mg PO DAILY #30 tab 08/29/18 03/15/19 Rx isosorbide mononitrate ER 60 mg 60 mg PO DAILY #30 tab 09/05/18 03/15/19 Rx tablet,extended release 24 hr nifedipine ER 60 mg 60 mg PO DAILY #90 tab 10/27/18 03/15/19 Rx tablet,extended release 24 hr rivaroxaban 20 mg tablet 20 mg PO DAILY #30 tab 10/27/18 03/15/19 Rx loratadine 10 mg tablet 10 mg PO DAILY 11/20/18 03/15/19 History Ascorbic Acid [C-500] 500 mg PO DAILY 03/14/19 03/15/19 History Losartan Potassium 100 mg PO DAILY 03/14/19 03/15/19 History Magnesium 250 mg PO DAILY 03/14/19 03/15/19 History Allergies Allergy/AdvReac Type Severity Reaction Status Date / Time heparin Allergy Verified 01/14/19 09:48 Exam Vital signs and Labs for Last 24 Hours: Temp Pulse Resp BP Pulse Ox 97.8 F 62 18 147/76 H 94 L 03/15/19 07:53 03/15/19 08:00 03/15/19 07:53 03/15/19 07:53 03/15/19 08:00 Laboratory Results - last 24 hr 03/14/19 17:30: WBC 5.1, RBC 3.87 L, Hgb 13.6 L, Hct 41.0 L, MCV 106.0 H, MCH 35.0 H, MCHC 33.0, RDW 13.6, Plt Count 82 L, MPV 10.9 H, Neut % (Auto) 63.5, Lymph % (Auto) 24.8, [place] % (Auto) 8.9, Eos % (Auto) 2.1, Baso % (Auto) 0.7, Neut # (Auto) 3.2, Lymph # (Auto) 1.3, [place] # (Auto) 0.5, Eos # (Auto) 0.1, Baso # (Auto) 0.0 03/14/19 17:30: Sodium 144, Potassium 3.3 L, Chloride 107, Carbon Dioxide 24, Anion Gap 16.3 H, BUN 15, Creatinine 1.32 H, Estimated Creat Clear 70, Estimated GFR 54 L, Est GFR ( Amer) 65, Glucose 104, Calcium 9.2, Troponin I 0.07 H , TSH 0.92 D 03/14/19 20:45: Troponin I 0.84 H 03/14/19 23:45: Troponin I 1.82 H I & O for Last 24 hours: Intake & Output 03/12/19 03/13/19 03/14/19 03/15/19 11:59 11:59 11:59 11:59 Intake Total 480 / 480 Balance 480 / 480 Weight 199 lb 9 oz
[2019-03-15 10:56] LABS: Eosinophils # 0.2 K/mm3 (0.0-0.4); Mean Corpuscular Volume 104.5 fl (80-94); Monocytes # 0.5 K/mm3 (0.1-1.0)
--- NOTE | 2019-03-15 10:58 | History & Physical Report ---
*Admission Date: 03/14/19 *Chief complaint: Chest pain *History of present illness: This is 68-year-old white male began having discomfort between his shoulder blades yesterday evening. The pain spread up into the neck and chest. He has known coronary artery disease with coronary artery bypass grafting and one subsequent stent. He most recently has been cared for by Dr. Foster. He came to the emergency room at [facility] and was admitted. He has had elevations in his troponin indicating a non-STEMI. There was cardiac consultation ordered but I have not spoke with Dr. Fsoter at this point. This morning the patient is comfortable. He has risk factors that include family history and's and personal history of smoking. His daughter who is present also states that he drinks bourbon daily greater than 4 drinks a day. Included in his chart in the emergency room is the report from his last cardiac catheterization where he underwent successful stent stenting of the saphenous vein graft supplying the dominant circumflex artery. He had one drug-eluting stent placed with stenosis was reduced to 0%. His left internal mammary artery graft to the LAD was patent. [facility] History Medical History: Reports:: Atrial Fibrillation, Coronary Artery Disease, Hyperlipidemia, Hypertension, Myocardial Infarction, Palpitations Denies:: Cancer, Diabetes Mellitus Type 1, Diabetes Mellitus Type 2, MRSA *Have you ever received a pneumonia vaccine?: No *Have you received a flu vaccine this season?: No Other Medical History: Reports: Arthritis, Hypothyroidism Laterality Cases: Bilateral: Tonsillectomy Other Surgeries: Yes: CABG, Cardiac Catheterization, Cholecystectomy, Colonoscopy, Coronary Stent Amputation: No Fractures: No - *Social History Educational Level: Completed High School Smoking Status: Current every day smoker Tobacco Type: cigarettes # Packs/Day (cigarettes): 1 (04/16 ppd) #Yrs smoked (if former smoker): 50 Alcohol Intake: current Alcohol Intake Frequency:: 0-2 drinks per day Substance Use Type: denies use *Occupational Status:: retired Household Members: none *Travel in the last 8 weeks: None Family Hx:: Heart Attack, Hypertension, Stroke Review of Systems - Constitutional Denies body ache(s) - Eyes Denies blurry vision - ENT Denies abnormal hearing, Denies dizziness - *Cardiovascular Reports chest pain (As described) - *Respiratory Denies chest congestion, Denies cough - *Gastrointestinal Denies abdominal pain - *Genitourinary Denies difficulty urinating - *Musculoskeletal Denies joint pain, Denies back pain - Integumentary/Breasts Denies bleeding lesions - *Neurologic Denies abnormal movements, Denies abnormal speech, Denies behavioral changes, Denies dizziness - Psychiatric Denies anxiety - Endocrine Denies rapid, pounding, or irregular heartbeat Meds Home Medications Medication Instructions Recorded Confirmed Type Levothyroxine Sodium 175 mcg PO DAILY 03/03/18 03/15/19 History [Levothyroxine 175mcg (0.175mg) Tab] raNITIdine HCl [Ranitidine HCl] 150 mg PO BID 03/03/18 03/15/19 History omega 5-lxe-nxu-fish oil 500 mg 1 cap PO QID cap 03/11/18 03/15/19 History (200mg-300mg)-1,000 mg capsule clopidogrel 75 mg tablet 75 mg PO DAILY #30 tab 08/29/18 03/15/19 Rx isosorbide mononitrate ER 60 mg 60 mg PO DAILY #30 tab 09/05/18 03/15/19 Rx tablet,extended release 24 hr nifedipine ER 60 mg 60 mg PO DAILY #90 tab 10/27/18 03/15/19 Rx tablet,extended release 24 hr rivaroxaban 20 mg tablet 20 mg PO DAILY #30 tab 10/27/18 03/15/19 Rx loratadine 10 mg tablet 10 mg PO DAILY 11/20/18 03/15/19 History Ascorbic Acid [C-500] 500 mg PO DAILY 03/14/19 03/15/19 History Losartan Potassium 100 mg PO DAILY 03/14/19 03/15/19 History Magnesium 250 mg PO DAILY 03/14/19 03/15/19 History Allergies Allergy/AdvReac Type Severity Reaction Status Date / Time heparin Allergy Verified 01/14/19 09:48 Exam Vital signs and Labs for Last 24 Hours: Temp Pulse Resp BP Pulse Ox 97.8 F 62 18 147/76 H 94 L 03/15/19 07:53 03/15/19 08:00 03/15/19 07:53 03/15/19 07:53 03/15/19 08:00 Laboratory Results - last 24 hr 03/14/19 17:30: WBC 5.1, RBC 3.87 L, Hgb 13.6 L, Hct 41.0 L, MCV 106.0 H, MCH 35.0 H, MCHC 33.0, RDW 13.6, Plt Count 82 L, MPV 10.9 H, Neut % (Auto) 63.5, Lymph % (Auto) 24.8, Sac % (Auto) 8.9, Eos % (Auto) 2.1, Baso % (Auto) 0.7, Neut # (Auto) 3.2, Lymph # (Auto) 1.3, Sac # (Auto) 0.5, Eos # (Auto) 0.1, Baso # (Auto) 0.0 03/14/19 17:30: Sodium 144, Potassium 3.3 L, Chloride 107, Carbon Dioxide 24, Anion Gap 16.3 H, BUN 15, Creatinine 1.32 H, Estimated Creat Clear 70, Estimated GFR 54 L, Est GFR ( Amer) 65, Glucose 104, Calcium 9.2, Troponin I 0.07 H , TSH 0.92 D 03/14/19 20:45: Troponin I 0.84 H 03/14/19 23:45: Troponin I 1.82 H I & O for Last 24 hours: Intake & Output 03/12/19 03/13/19 03/14/19 03/15/19 11:59 11:59 11:59 11:59 Intake Total 480 / 480 Balance 480 / 480 Weight 199 lb 9 oz - Constitutional no acute distress - *Routine HEENT Exam Eye: Present: PERRL. Absent: scleral injection ENT: Present: mucous membranes moist - *Routine Neck Exam Present: full ROM - Routine Chest/Breast/Axilla Exam Chest wall: Absent: tenderness, pacemaker - *Routine Respiratory Exam Present: rales (Good air movement. Bibasilar rales.) - *Routine Cardiovascular Exam Present: RRR, murmur (Prominent aortic murmur. Grade 3/6) - *Routine Abdominal Exam Present: soft. Absent: tenderness - *Routine Extremities Exam Absent: edema - *Routine Neurological Exam Present: alert, oriented X3 Assessment and Plan (1) Non-STEMI (non-ST elevated myocardial infarction) Current visit: Yes Status: Acute Category: Medical Code(s): I21.4 - Non-ST elevation (NSTEMI) myocardial infarction (2) Tobacco abuse Current visit: Yes Status: Acute Category: Medical Code(s): Z72.0 - Tobacco use (3) Alcohol abuse Current visit: Yes Status: Acute Category: Medical Code(s): F10.10 - Alcohol abuse, uncomplicated (4) History of coronary artery bypass graft x 3 Current visit: No Status: Chronic Category: Surgical Code(s): Z95.1 - Presence of aortocoronary bypass graft (5) Hyperlipidemia Current visit: No Status: Chronic Qualifiers: Hyperlipidemia type: unspecified Qualified Code(s): E78.5 - Hyperlipidemia, unspecified Category: Medical Code(s): E78.5 - Hyperlipidemia, unspecified (6) Hypertension Current visit: No Status: Chronic Qualifiers: Hypertension type: essential hypertension Qualified Code(s): I10 - Essential (primary) hypertension Category: Medical Code(s): I10 - Essential (primary) hypertension (7) retirement current use of anticoagulant therapy Current visit: No Status: Chronic Category: Medical Code(s): Z79.01 - extermination inspector (current) use of anticoagulants - Assessment and plan all Dx Assessment and Plan for all problems:: The patient is currently being monitored. Case will be discussed with Dr. Foster. Likely cardiac catheterization in the morning.
[2019-03-15 11:04] LABS: Basophils % 0.4 % (0.1-2.0); Eosinophils % 3.6 % (0.1-12.0); Hematocrit 43.3 % (42.0-52.0); Hemoglobin 14.6 g/dL (14.1-18.0); Lymphocytes # 1.9 K/mm3 (0.7-4.5); Lymphocytes % 27.7 % (10-50); Mean Corpuscular HGB Conc 33.7 g/dL (31.8-35.4); Mean Platelet Volume 10.5 fl (7.4-10.4); Monocytes % 7.7 % (1.7-9.3); Neutrophils # 4.1 K/mm3 (1.8-7.8); Neutrophils % 60.6 % (37.0-80.0); Platelet Count 92 K/mm3 (142-424); Red Blood Count 4.14 M/mm3 (4.60-6.20); Red Cell Distribution Width 13.7 % (11.5-17.5); White Blood Count 6.7 K/mm3 (4.8-10.8)
[2019-03-15 11:06] LABS: Anion Gap 13.8 mEq/L (5-15); Calcium 9.1 mg/dL (8.5-10.1)
--- NOTE | 2019-03-15 11:09 | Pharmacy Consult Notes ---
[facility] Pharmacy VTE Monitoring - Patient Demographics Admission date: 03/14/19 Report Date: 03/15/19 Time: 11:09 Allergies/Adverse Reactions: Patient Allergies heparin Allergy (Verified 01/14/19 09:48) Height: 1.8 m Weight: 90.52 kg Patient Problems: Current Active Problems Acute coronary syndrome (Acute) Non-STEMI (non-ST elevated myocardial infarction) (Acute) Tobacco abuse (Acute) Alcohol abuse (Acute) - VTE Risk Labs: VTE Related Lab Results Hgb 14.6 g/dL (14.1-18.0) 03/15/19 10:40 Hct 43.3 % (42.0-52.0) 03/15/19 10:40 Plt Count 92 K/mm3 (142-424) L 03/15/19 10:40 BUN 15 mg/dL (7-18) 03/14/19 17:30 Creatinine 1.32 mg/dL (0.70-1.30) H 03/14/19 17:30 Estimated Creat Clear 70 mL/min (50-200) 03/14/19 17:30 Was VTE Risk Assessment Performed: Yes VTE Score: 5 VTE Risk Level: Low Risk - Prophylaxis VTE Prophylaxis Ordered?: Yes Types of VTE Prophylaxis: Pharmacological Pharmacologic Type: Other (XARELTO)
--- NOTE | 2019-03-15 20:13 | Electrocardiograph Report ---
APPROVED REPORT Exam: Resting ECG HR:71 bpm ECG Measurements Heart Rate 71 AXES QRSd 154 QRS -24 QT 424 T5 QTc 460 <Conclusion> Atrial fibrillation Right bundle branch block Minimal voltage criteria for LVH, may be normal variant Abnormal ECG Electronically signed by : Ramesh Pina, 03/15/2019 20:13:23
--- NOTE | 2019-03-16 08:20 | Progress Note ---
<Chiquis Brian - Last Filed: 03/16/19 09:03> Internal Medicine - PN: Subj *Date: 03/16/19 *Time: 09:03 Interval history: States he feels fine. He denies chest pain, shortness of breath, and palpitations. He has been watching his blood pressure on the monitor and states it is been good. He states he did not sleep. He is n.p.o. for cardiology consult this a.m. Is concerned about this. He has been ambulating in the room without difficulty. Exam Vital signs and Labs for Last 24 Hours: Temp Pulse Resp BP Pulse Ox 97.8 F 64 16 141/85 H 94 L 03/16/19 04:00 03/16/19 06:00 03/16/19 06:00 03/16/19 06:00 03/16/19 06:00 Laboratory Results - last 24 hr 03/15/19 10:40: WBC 6.7 D, RBC 4.14 L, Hgb 14.6, Hct 43.3, MCV 104.5 H, MCH 35.2 H, MCHC 33.7, RDW 13.7, Plt Count 92 L, MPV 10.5 H, Neut % (Auto) 60.6, Lymph % (Auto) 27.7, [place] % (Auto) 7.7, Eos % (Auto) 3.6, Baso % (Auto) 0.4, Neut # (Auto) 4.1, Lymph # (Auto) 1.9, [place] # (Auto) 0.5, Eos # (Auto) 0.2, Baso # (Auto) 0.0 03/15/19 10:40: Sodium 139, Potassium 3.8, Chloride 105, Carbon Dioxide 24, Anion Gap 13.8, BUN 17, Creatinine 1.14, Estimated Creat Clear 81, Estimated GFR 64, Est GFR ( Amer) 78, Glucose 112 H, Calcium 9.1 I & O for Last 24 hours: Intake & Output 03/13/19 03/14/19 03/15/19 03/16/19 11:59 11:59 11:59 11:59 Intake Total 480 / 480 840 / 840 Balance 480 / 480 840 / 840 Weight 199 lb 9 oz 199 lb 9 oz Radiology Reports for the Last 24 Hours: 03/14/2019 chest x-ray IMPRESSION: No acute findings. - Constitutional no acute distress Comments: Ambulating in room. Appears comfortable. - *Routine Respiratory Exam Present: CTA bilaterally (Anteriorly and posteriorly) - *Routine Cardiovascular Exam Present: RRR, murmur Comments: Sinus rhythm with bundle branch block on monitor - *Routine Abdominal Exam Present: soft, normoactive bowel sounds. Absent: tenderness - *Routine Extremities Exam Present: pulses intact. Absent: edema, calf tenderness - *Routine Neurological Exam Present: alert, oriented X3 Assessment and Plan (1) Non-STEMI (non-ST elevated myocardial infarction) Current visit: Yes Status: Acute Category: Medical Code(s): I21.4 - Non-ST elevation (NSTEMI) myocardial infarction (2) Tobacco abuse Current visit: Yes Status: Acute Category: Medical Code(s): Z72.0 - Tobacco use (3) Alcohol abuse Current visit: Yes Status: Acute Category: Medical Code(s): F10.10 - Alcohol abuse, uncomplicated (4) History of coronary artery bypass graft x 3 Current visit: No Status: Chronic Category: Surgical Code(s): Z95.1 - Presence of aortocoronary bypass graft (5) Hyperlipidemia Current visit: No Status: Chronic Qualifiers: Hyperlipidemia type: unspecified Qualified Code(s): E78.5 - Hyperlipidemia, unspecified Category: Medical Code(s): E78.5 - Hyperlipidemia, unspecified (6) Hypertension Current visit: No Status: Chronic Qualifiers: Hypertension type: essential hypertension Qualified Code(s): I10 - Essential (primary) hypertension Category: Medical Code(s): I10 - Essential (primary) hypertension (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 <Yazan Castellanos - Last Filed: 03/16/19 10:07> Internal Medicine - PN: Subj *Date: 03/16/19 *Time: 10:07 Exam Vital signs and Labs for Last 24 Hours: Temp Pulse Resp BP Pulse Ox 97.8 F 64 16 141/85 H 94 L 03/16/19 08:00 03/16/19 06:00 03/16/19 06:00 03/16/19 06:00 03/16/19 06:00 Laboratory Results - last 24 hr 03/15/19 10:40: WBC 6.7 D, RBC 4.14 L, Hgb 14.6, Hct 43.3, MCV 104.5 H, MCH 35.2 H, MCHC 33.7, RDW 13.7, Plt Count 92 L, MPV 10.5 H, Neut % (Auto) 60.6, Lymph % (Auto) 27.7, [place] % (Auto) 7.7, Eos % (Auto) 3.6, Baso % (Auto) 0.4, Neut # (Auto) 4.1, Lymph # (Auto) 1.9, [place] # (Auto) 0.5, Eos # (Auto) 0.2, Baso # (Auto) 0.0 03/15/19 10:40: Sodium 139, Potassium 3.8, Chloride 105, Carbon Dioxide 24, Anion Gap 13.8, BUN 17, Creatinine 1.14, Estimated Creat Clear 81, Estimated GFR 64, Est GFR ( Amer) 78, Glucose 112 H, Calcium 9.1 03/15/19 10:40: Triglycerides 340 H, Cholesterol 149, LDL Cholesterol 41, VLDL Cholesterol 68 H, HDL Cholesterol 40, Cholesterol/HDL Ratio 3.7 H I & O for Last 24 hours: Intake & Output 03/13/19 03/14/19 03/15/19 03/16/19 23:59 23:59 23:59 23:59 Intake Total 1320 / 1320 0 / 0 Balance 1320 / 1320 0 / 0 Weight 199 lb 9 oz 199 lb 9 oz Assessment and Plan (1) Non-STEMI (non-ST elevated myocardial infarction) Current visit: Yes Status: Acute Category: Medical Code(s): I21.4 - Non-ST elevation (NSTEMI) myocardial infarction (2) Tobacco abuse Current visit: Yes Status: Acute Category: Medical Code(s): Z72.0 - Tobacco use (3) Alcohol abuse Current visit: Yes Status: Acute Category: Medical Code(s): F10.10 - Alcohol abuse, uncomplicated (4) History of coronary artery bypass graft x 3 Current visit: No Status: Chronic Category: Surgical Code(s): Z95.1 - Presence of aortocoronary bypass graft (5) Hyperlipidemia Current visit: No Status: Chronic Qualifiers: Hyperlipidemia type: unspecified Qualified Code(s): E78.5 - Hyperlipidemia, unspecified Category: Medical Code(s): E78.5 - Hyperlipidemia, unspecified (6) Hypertension Current visit: No Status: Chronic Qualifiers: Hypertension type: essential hypertension Qualified Code(s): I10 - Essential (primary) hypertension Category: Medical Code(s): I10 - Essential (primary) hypertension (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 Current visit: No Status: Chronic Category: Medical Code(s): Z79.01 - alf (current) use of anticoagulants (8) Left carotid bruit Current visit: Yes Status: Acute Category: Medical Code(s): R09.89 - Other specified symptoms and signs involving the circulatory and respiratory systems (9) RBBB Current visit: No Status: Chronic Category: Medical Code(s): I45.10 - Unspecified right bundle-branch block (10) Atrial fibrillation Current visit: No Status: Chronic Qualifiers: Atrial fibrillation type: paroxysmal Qualified Code(s): I48.0 - Paroxysmal atrial fibrillation Category: Medical Code(s): I48.91 - Unspecified atrial fibrillation - Assessment and plan all Dx Assessment and Plan for all problems:: Saw patient, agree with above note.
--- NOTE | 2019-03-16 09:07 | Consult Report ---
History of Present Illness Consult date: 03/16/19 Requesting physician: Yazan Castellanos Consult reason: chest pain Chief complaint: chest pain Additional Medical History:: 1. coronary artery disease status post coronary artery bypass grafting 2. Hypertension 3. Hyperlipidemia 4. Atrial fibrillation 5. Long-term anticoagulation 6. History of cardiomyopathy [facility] 02/2018: 1. Coronary artery disease as described above 2. Severe disease in the saphenous vein graft supplying the large dominant circumflex artery 3. Successful stenting of the saphenous vein graft supplying the dominant circumflex artery severe disease reduced to 0% with 1 drug-eluting stent 4. Patent DUNN to the LAD 5. Patent saphenous vein graft with mild to moderate nonflow limiting disease in the proximal graft disease supplying the moderate-sized posterior descending artery 6. Preserved ejection fraction 7. Normal left ventricular end-diastolic pressure PLAN: 1. Aspirin and Plavix plus Xarelto 20 mg daily for one month then discontinue the aspirin 2. Cardiac rehabilitation 3. Avoidance of tobacco products 4. Risk factor modification 5. Control of atrial fibrillation flutter with rate controlling medications 6. Follow-up with primary needle control cheniller Dr. Yisel Barnett in one month History of present illness: This is a 68-year-old gentleman who was admitted to the hospital for chest pain. The patient states that Saturday afternoon he started having chest discomfort. He states that this is a pressure sensation in the center of his chest that goes to his bilateral ribs and then radiates to his back between his shoulder blades and up to his neck. He states that the pain quickly spread throughout his entire chest. He denies any associated shortness of breath, nausea or diaphoresis. The patient reports that nothing was helping to improve the pain and nothing was making it worse. The patient states that his blood pressure was elevated when the chest pain started. He states that this was a moderate to severe pain. He came here to the hospital at [facility] because the symptoms were similar to his previous heart attack and also similar to when he needed stents in the past. He does have a history of coronary artery bypass grafting with subsequent stent placement in February 2018. This morning he states his chest pain has resolved. He did rule in for a non-ST elevation myocardial infarction with an elevated troponin at 1.82. He denies any fevers, chills, nausea, vomiting, diarrhea, PND or orthopnea. [facility] History I have reviewed the patient's past medical history: Yes Medical History: Reports:: Atrial Fibrillation, Coronary Artery Disease, Hyperlipidemia, Hypertension, Myocardial Infarction, Palpitations Denies:: Cancer, Diabetes Mellitus Type 1, Diabetes Mellitus Type 2, MRSA *Have you ever received a pneumonia vaccine?: No *Have you received a flu vaccine this season?: No Other Medical History: Reports: Arthritis, Hypothyroidism Laterality Cases: Bilateral: Tonsillectomy Other Surgeries: Yes: CABG, Cardiac Catheterization, Cholecystectomy, Colonoscopy, Coronary Stent Amputation: No Fractures: No - *Social History Educational Level: Completed High School Smoking Status: Current every day smoker Tobacco Type: cigarettes # Packs/Day (cigarettes): 1 (1 04/16 ppd) #Yrs smoked (if former smoker): 50 Alcohol Intake: current Alcohol Intake Frequency:: 0-2 drinks per day Substance Use Type: denies use *Occupational Status:: retired Household Members: none *Travel in the last 8 weeks: None Family Hx:: Heart Attack, Hypertension, Stroke Meds Home Medications Medication Instructions Recorded Confirmed Type Levothyroxine Sodium 175 mcg PO DAILY 03/03/18 03/15/19 History [Levothyroxine 175mcg (0.175mg) Tab] raNITIdine HCl [Ranitidine HCl] 150 mg PO BID 03/03/18 03/15/19 History omega 2-vor-jqp-fish oil 500 mg 1 cap PO QID cap 03/11/18 03/15/19 History (200mg-300mg)-1,000 mg capsule clopidogrel 75 mg tablet 75 mg PO DAILY #30 tab 08/29/18 03/15/19 Rx isosorbide mononitrate ER 60 mg 60 mg PO DAILY #30 tab 09/05/18 03/15/19 Rx tablet,extended release 24 hr nifedipine ER 60 mg 60 mg PO DAILY #90 tab 10/27/18 03/15/19 Rx tablet,extended release 24 hr rivaroxaban 20 mg tablet 20 mg PO DAILY #30 tab 10/27/18 03/15/19 Rx loratadine 10 mg tablet 10 mg PO DAILY 11/20/18 03/15/19 History Ascorbic Acid [C-500] 500 mg PO DAILY 03/14/19 03/15/19 History Magnesium 250 mg PO DAILY 03/14/19 03/15/19 History Atorvastatin Calcium [Atorvastatin 40 mg PO HS 03/15/19 03/15/19 History 40mg Tab] Cholecalciferol (Vitamin D3) 5,000 unit PO DAILY 03/15/19 03/15/19 History [Vitamin D3] Losartan Potassium 100 mg PO DAILY 03/15/19 03/15/19 History Multivit-Min/FA/Lycopen/Lutein 1 each PO DAILY 03/15/19 03/15/19 History [Centrum Silver Tablet] Pyridoxine HCl (Vitamin B6) 100 mg PO DAILY 03/15/19 03/15/19 History [Vitamin B-6] Sildenafil Citrate [Sildenafil] 100 mg PO NEEDED PRN 03/15/19 03/15/19 History Allergies Allergy/AdvReac Type Severity Reaction Status Date / Time heparin Allergy Verified 01/14/19 09:48 Review of Systems - Review of Systems Review of systems:: pertinent systems reviewed and negative unless documented below - *Cardiovascular Reports chest pain, Reports chest pain at rest, Reports chest pain with activity - *Neurologic Denies abnormal hearing, Denies abnormal movements, Denies abnormal speech, Denies behavioral changes, Denies dizziness Exam Vital signs and Labs for Last 24 Hours: Temp Pulse Resp BP Pulse Ox 97.8 F 64 16 141/85 H 94 L 03/16/19 08:00 03/16/19 06:00 03/16/19 06:00 03/16/19 06:00 03/16/19 06:00 Laboratory Results - last 24 hr 03/15/19 10:40: WBC 6.7 D, RBC 4.14 L, Hgb 14.6, Hct 43.3, MCV 104.5 H, MCH 35.2 H, MCHC 33.7, RDW 13.7, Plt Count 92 L, MPV 10.5 H, Neut % (Auto) 60.6, Lymph % (Auto) 27.7, [place] % (Auto) 7.7, Eos % (Auto) 3.6, Baso % (Auto) 0.4, Neut # (Auto) 4.1, Lymph # (Auto) 1.9, [place] # (Auto) 0.5, Eos # (Auto) 0.2, Baso # (Auto) 0.0 03/15/19 10:40: Sodium 139, Potassium 3.8, Chloride 105, Carbon Dioxide 24, Anion Gap 13.8, BUN 17, Creatinine 1.14, Estimated Creat Clear 81, Estimated GFR 64, Est GFR ( Amer) 78, Glucose 112 H, Calcium 9.1 I & O for Last 24 hours: Intake & Output 03/13/19 03/14/19 03/15/19 03/16/19 23:59 23:59 23:59 23:59 Intake Total 1320 / 1320 0 / 0 Balance 1320 / 1320 0 / 0 Weight 199 lb 9 oz 199 lb 9 oz Narrative: His EKG is atrial fibrillation with a right bundle branch block. - Constitutional no acute distress, average body habitus - *Routine HEENT Exam Head: Present: normocephalic, atraumatic Eye: Present: EOMI, PERRL ENT: Present: mucous membranes moist - *Routine Neck Exam Present: supple, full ROM, carotid bruit (Left carotid bruit), normal carotid upstroke. Absent: JVD, lymphadenopathy - *Routine Respiratory Exam Present: CTA bilaterally - *Routine Cardiovascular Exam Present: Normal S1, Normal S2, irregularly irregular. Absent: murmur - *Routine Abdominal Exam Present: soft, normoactive bowel sounds. Absent: tenderness, distended, rebound - *Routine Extremities Exam Present: full ROM, pulses intact, normal capillary refill. Absent: cyanosis, clubbing, edema - *Routine Skin Exam Present: intact, warm. Absent: erythema, rash - *Routine Neurological Exam Present: alert, oriented X3, CN II-XII intact. Absent: sensory deficit, motor deficit - Routine Psychiatric Exam Present: normal affect, normal thought process - Detailed Eye Exam Eyelids: Left normal inspection Assessment and Plan (1) Non-STEMI (non-ST elevated myocardial infarction) Current visit: Yes Status: Acute Category: Medical Code(s): I21.4 - Non-ST elevation (NSTEMI) myocardial infarction (2) Tobacco abuse Current visit: Yes Status: Acute Category: Medical Code(s): Z72.0 - Tobacco use (3) Alcohol abuse Current visit: Yes Status: Acute Category: Medical Code(s): F10.10 - Alcohol abuse, uncomplicated (4) History of coronary artery bypass graft x 3 Current visit: No Status: Chronic Category: Surgical Code(s): Z95.1 - Presence of aortocoronary bypass graft (5) Hyperlipidemia Current visit: No Status: Chronic Qualifiers: Hyperlipidemia type: unspecified Qualified Code(s): E78.5 - Hyperlipidemia, unspecified Category: Medical Code(s): E78.5 - Hyperlipidemia, unspecified (6) Hypertension Current visit: No Status: Chronic Qualifiers: Hypertension type: essential hypertension Qualified Code(s): I10 - Essential (primary) hypertension Category: Medical Code(s): I10 - Essential (primary) hypertension (7) correction current use of anticoagulant therapy Current visit: No Status: Chronic Category: Medical Code(s): Z79.01 - trans router (current) use of anticoagulants (8) Left carotid bruit Current visit: Yes Status: Acute Category: Medical Code(s): R09.89 - Other specified symptoms and signs involving the circulatory and respiratory systems (9) RBBB Current visit: No Status: Chronic Category: Medical Code(s): I45.10 - Unspecified right bundle-branch block (10) Atrial fibrillation Current visit: No Status: Chronic Qualifiers: Atrial fibrillation type: paroxysmal Qualified Code(s): I48.0 - Paroxysmal atrial fibrillation Category: Medical Code(s): I48.91 - Unspecified atrial fibrillation - Assessment and plan all Dx Assessment and Plan for all problems:: Plan: 1. The patient was admitted to the hospital with chest pain. He is having symptoms consistent with typical angina. The patient did rule in for non-ST elevation myocardial infarction with a troponin of 1.82. Given the patient's typical angina and non-ST elevation myocardial infarction, we will plan to proceed with left cardiac catheterization today to evaluate his coronary artery disease. The patient does have a history of coronary artery bypass grafting so we will use right groin access. 2. The patient has been educated on the risks and benefits of proceeding with left cardiac catheterization. The patient verbalized understanding is agreeable to proceeding with the procedure. 3. The patient will remain n.p.o. in preparation for left cardiac catheterizati on. 4. The patient will get IV fluids and premedications prior to the procedure. 5. As mentioned above he does have coronary artery disease, status post three- vessel coronary artery bypass grafting. He has ruled in for non-STEMI and will do a left cardiac catheterization to further evaluate his coronary artery disease. 6. His blood pressure is acceptable. 7. His LDL goal is less than 55. We will get a lipid panel. 8. Patient does have a history of atrial fibrillation. He is rate controlled. On Xarelto for long-term anticoagulation which is being held in preparation for left cardiac catheterization. 9. Left carotid bruit noted. We will give see an eye to evaluate carotid artery stenosis. 10. We will get an echocardiogram to evaluate LV function. 11. Further recommendations will be made pending the patient's response to treatment and the results of his left heart cath, carotid and echocardiogram. Thank you for the opportunity to help participate in the care of this patient.
[2019-03-16 09:39] LABS: Chol/HDL Ratio 3.7 (1-3.5)
--- NOTE | 2019-03-16 19:33 | Cardiology Report ---
APPROVED REPORT EXAM: Comprehensive 2D, Doppler, and color-flow Echocardiogram [employer]: Marianna Peters RT(R) Ht: 5 ft 11 in Wt: 199lbs BSA: 2.10 BP: 141/85 mmHg Indications: NSTEMI, CAD, CP, AFIB, CM, RBBB, HTN, Smoking, hyperlipidemia 2D Dimensions LVOT 2.19 cm (M/F) 1.5-2.5 M-Mode Dimensions RVDd 2.69 cm (0.9-2.6)LVDd 5.42 cm (3.5-5.7) LVDs 4.09 cm (3.5-5.7)IVSd 1.00 cm (0.6-1.1) PWd 1.08 cm (0.6-1.1)EF (Teich) 48.20% FS 24.50% EDV (Teich) 142.50 mL ESV (Teich) 73.80 mL LV Diastology E/A Ratio 1.00 Aortic Valve LVOT Max 90.00 (70-110 cm/s)LVOT VTI 22.18 cm Mitral Valve MV A Velocity 71.00 (40-130 cm/s) Left Ventricle Left atrium is mildly enlarged, left ventricle is normal size, there is moderate concentric left ventricular hypertrophy, visually estimated ejection fraction 55% with no regional wall motion abnormality. Grade 1 diastolic dysfunction seen without tissue Doppler evidence of raise left atrial pressure. Right Ventricle Right atrium and right ventricular mildly enlarged with normal contractility. Aortic Valve Aortic root is mildly enlarged. Aortic valve is bicuspid, the mean gradient across valve is 10 mmHg, valve area is 1.9 cm represents mild aortic stenosis, there is mild aortic insufficiency present. Mitral Valve Mitral valve is grossly normal, there is mild mitral regurgitation. Tricuspid Valve Tricuspid valve is grossly normal, there is mild tricuspid regurgitation. Pulmonic Valve Pulmonic valve is poorly visualized. Great Vessels Aortic root is mildly enlarged. Pericardium No significant pericardial effusion noted. Conclusion 1. Mildly enlarged left atrium, normal left ventricular size, mild concentric left ventricular hypertrophy, visually estimated ejection fraction 55% with no regional wall motion abnormality, grade 1 diastolic dysfunction seen without tissue Doppler evidence of raise left atrial pressure. 2. Mildly enlarged aortic root, aortic valve is bicuspid, this is associated with mild aortic stenosis and mild aortic insufficiency as described above. 3. Mild mitral and tricuspid regurgitation. 4. No significant pericardial effusion noted. Electronically signed by : Chicho Hendricks, 03/16/2019 19:31:22
[2019-03-17 06:24] LABS: Basophils % 0.5 % (0.1-2.0); Eosinophils # 0.1 K/mm3 (0.0-0.4); Eosinophils % 2.2 % (0.1-12.0); Hematocrit 41.4 % (42.0-52.0); Hemoglobin 13.8 g/dL (14.1-18.0); Lymphocytes # 1.5 K/mm3 (0.7-4.5); Lymphocytes % 26.3 % (10-50); Mean Corpuscular HGB Conc 33.4 g/dL (31.8-35.4); Mean Corpuscular Volume 103.5 fl (80-94); Mean Platelet Volume 10.6 fl (7.4-10.4); Monocytes # 0.4 K/mm3 (0.1-1.0); Monocytes % 6.4 % (1.7-9.3); Neutrophils # 3.6 K/mm3 (1.8-7.8); Neutrophils % 64.5 % (37.0-80.0); Platelet Count 86 K/mm3 (142-424); Red Cell Distribution Width 13.6 % (11.5-17.5); White Blood Count 5.5 K/mm3 (4.8-10.8)
[2019-03-17 06:38] LABS: Albumin Level 3.6 gm/dL (3.4-5.0); Albumin/Globulin Ratio 1.1 (1.1-1.8); Anion Gap 11.2 mEq/L (5-15); Bilirubin,Total 0.6 mg/dL (0.2-1.0); Calcium 8.4 mg/dL (8.5-10.1); Globulin 3.4 gm/dl (1.3-3.2)
[2019-03-17 06:40] LABS: Albumin Level 3.6 gm/dL (3.4-5.0); Bilirubin,Direct 0.2 mg/dL (0.0-0.2); Bilirubin,Indirect 0.4 mg/dL (0.0-0.9); Bilirubin,Total 0.6 mg/dL (0.2-1.0); Total Protein,Serum 7.1 gm/dL (6.4-8.2)
[2019-03-17 06:44] LABS: Chol/HDL Ratio 3.5 (1-3.5)
--- NOTE | 2019-03-17 08:04 | Progress Note ---
Subjective Date: 03/17/19 Time: 08:01 Principal diagnosis: NSTEMI Interval history: 68 yo WM in bed in NAD. No chest pain, pressure or SOA. Feeling better. Wants to go home. Exam Vital signs and Labs for Last 24 Hours: Temp Pulse Resp BP Pulse Ox 97.5 F L 61 18 145/84 H 96 03/17/19 04:00 03/17/19 07:54 03/17/19 07:54 03/17/19 07:54 03/17/19 07:54 Laboratory Results - last 24 hr 03/15/19 10:40: Triglycerides 340 H, Cholesterol 149, LDL Cholesterol 41, VLDL Cholesterol 68 H, HDL Cholesterol 40, Cholesterol/HDL Ratio 3.7 H 03/17/19 05:30: Triglycerides 172, Cholesterol 145, LDL Cholesterol 70, VLDL Cholesterol 34, HDL Cholesterol 41, Cholesterol/HDL Ratio 3.5 03/17/19 05:30: WBC 5.5, RBC 4.00 L, Hgb 13.8 L, Hct 41.4 L, MCV 103.5 H, MCH 34.6 H, MCHC 33.4, RDW 13.6, Plt Count 86 L, MPV 10.6 H, Neut % (Auto) 64.5, Lymph % (Auto) 26.3, [place] % (Auto) 6.4, Eos % (Auto) 2.2, Baso % (Auto) 0.5, Neut # (Auto) 3.6, Lymph # (Auto) 1.5, [place] # (Auto) 0.4, Eos # (Auto) 0.1, Baso # (Auto) 0.0 03/17/19 05:30: Total Bilirubin 0.6, Direct Bilirubin 0.2, Indirect Bilirubin 0.4, AST 26, ALT 30, Alkaline Phosphatase 55, Total Protein 7.1, Albumin 3.6 03/17/19 05:30: Sodium 140, Potassium 4.2, Chloride 105, Carbon Dioxide 28, Anion Gap 11.2, BUN 13, Creatinine 1.08, Estimated Creat Clear 82, Estimated GFR 68, Est GFR ( Amer) 83, Glucose 91, Calcium 8.4 L, Total Bilirubin 0.6, AST 27, ALT 28, Alkaline Phosphatase 54, Total Protein 7.0, Albumin 3.6, Globulin 3.4 H, Albumin/Globulin Ratio 1.1 I & O for Last 24 hours: Intake & Output 03/14/19 03/15/19 03/16/19 03/17/19 11:59 11:59 11:59 11:59 Intake Total 480 / 480 840 / 840 1357 / 1357 Output Total 950 / 950 Balance 480 / 480 840 / 840 407 / 407 Weight 199 lb 9 oz 199 lb 8.999 oz 193 lb 9 oz - *Routine HEENT Exam Head: Present: normocephalic Eye: Present: EOMI, PERRL ENT: Present: mucous membranes moist - *Routine Respiratory Exam Present: CTA bilaterally. Absent: accessory muscle use, rales, rhonchi, wheezes - *Routine Cardiovascular Exam Present: RRR, murmur. 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 NSTEMI, stable. PRANAV to SVG to CX and PRANAV to anastomosis of DUNN to LAD. On ASA and plavix for 30 days then stop ASA and continue plavix thereafter. Normal LVEF on echo and LHC. 2. Chronic A. fib. Continue Xarelto 3. HTN, continue home losartan 100 mg daily and nifedipine. Unable to add beta sudhakar due to low HR. 4. Hyperlipidemia, continue statin 5. Bicuspid aortic valve on echo. 6. OK for discharge home later today. Follow up with Dr. REYES next week.
--- NOTE | 2019-03-17 08:11 | Progress Note ---
<Chiquis Brian - Last Filed: 03/17/19 08:50> Internal Medicine - PN: Subj *Date: 03/17/19 *Time: 08:50 Interval history: Patient would like to go home. He cannot sleep in the hospital. He denies chest pain and shortness of breath. He has ambulated to the bathroom without difficulty. He is eating as usual. Patient had cardiac cath with stent placement yesterday. Exam Vital signs and Labs for Last 24 Hours: Temp Pulse Resp BP Pulse Ox 97.5 F L 61 18 145/84 H 96 03/17/19 04:00 03/17/19 07:54 03/17/19 07:54 03/17/19 07:54 03/17/19 07:54 Laboratory Results - last 24 hr 03/15/19 10:40: Triglycerides 340 H, Cholesterol 149, LDL Cholesterol 41, VLDL Cholesterol 68 H, HDL Cholesterol 40, Cholesterol/HDL Ratio 3.7 H 03/17/19 05:30: Triglycerides 172, Cholesterol 145, LDL Cholesterol 70, VLDL Cholesterol 34, HDL Cholesterol 41, Cholesterol/HDL Ratio 3.5 03/17/19 05:30: WBC 5.5, RBC 4.00 L, Hgb 13.8 L, Hct 41.4 L, MCV 103.5 H, MCH 34.6 H, MCHC 33.4, RDW 13.6, Plt Count 86 L, MPV 10.6 H, Neut % (Auto) 64.5, Lymph % (Auto) 26.3, [place] % (Auto) 6.4, Eos % (Auto) 2.2, Baso % (Auto) 0.5, Neut # (Auto) 3.6, Lymph # (Auto) 1.5, [place] # (Auto) 0.4, Eos # (Auto) 0.1, Baso # (Auto) 0.0 03/17/19 05:30: Total Bilirubin 0.6, Direct Bilirubin 0.2, Indirect Bilirubin 0.4, AST 26, ALT 30, Alkaline Phosphatase 55, Total Protein 7.1, Albumin 3.6 03/17/19 05:30: Sodium 140, Potassium 4.2, Chloride 105, Carbon Dioxide 28, Anion Gap 11.2, BUN 13, Creatinine 1.08, Estimated Creat Clear 82, Estimated GFR 68, Est GFR ( Amer) 83, Glucose 91, Calcium 8.4 L, Total Bilirubin 0.6, AST 27, ALT 28, Alkaline Phosphatase 54, Total Protein 7.0, Albumin 3.6, Globulin 3.4 H, Albumin/Globulin Ratio 1.1 I & O for Last 24 hours: Intake & Output 03/14/19 03/15/19 03/16/19 03/17/19 11:59 11:59 11:59 11:59 Intake Total 480 / 480 840 / 840 1357 / 1357 Output Total 950 / 950 Balance 480 / 480 840 / 840 407 / 407 Weight 199 lb 9 oz 199 lb 8.999 oz 193 lb 9 oz - Constitutional no acute distress - *Routine Respiratory Exam Comments: Rhonchi which clear with coughing. Few bibasilar crackles. - *Routine Cardiovascular Exam Present: RRR, murmur Comments: Monitor showing sinus rhythm with bundle branch block - *Routine Extremities Exam Absent: edema, calf tenderness - *Routine Neurological Exam Present: alert, oriented X3 Assessment and Plan (1) Non-STEMI (non-ST elevated myocardial infarction) Current visit: Yes Status: Acute Category: Medical Code(s): I21.4 - Non-ST elevation (NSTEMI) myocardial infarction (2) Tobacco abuse Current visit: Yes Status: Acute Category: Medical Code(s): Z72.0 - Tobacco use (3) Alcohol abuse Current visit: Yes Status: Acute Category: Medical Code(s): F10.10 - Alcohol abuse, uncomplicated (4) History of coronary artery bypass graft x 3 Current visit: No Status: Chronic Category: Surgical Code(s): Z95.1 - Presence of aortocoronary bypass graft (5) Hyperlipidemia Current visit: No Status: Chronic Qualifiers: Hyperlipidemia type: unspecified Qualified Code(s): E78.5 - Hyperlipidemia, unspecified Category: Medical Code(s): E78.5 - Hyperlipidemia, unspecified (6) Hypertension Current visit: No Status: Chronic Qualifiers: Hypertension type: essential hypertension Qualified Code(s): I10 - Essential (primary) hypertension Category: Medical Code(s): I10 - Essential (primary) hypertension (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 Current visit: No Status: Chronic Category: Medical Code(s): Z79.01 - FDC (current) use of anticoagulants (8) Left carotid bruit Current visit: Yes Status: Acute Category: Medical Code(s): R09.89 - Other specified symptoms and signs involving the circulatory and respiratory systems (9) RBBB Current visit: No Status: Chronic Category: Medical Code(s): I45.10 - U nspecified right bundle-branch block (10) Atrial fibrillation Current visit: No Status: Chronic Qualifiers: Atrial fibrillation type: paroxysmal Qualified Code(s): I48.0 - Paroxysmal atrial fibrillation Category: Medical Code(s): I48.91 - Unspecified atrial fibrillation - Assessment and plan all Dx Assessment and Plan for all problems:: Will discharge home. Discussed smoking cessation. <Yazan Castellanos - Last Filed: 03/17/19 09:00> Internal Medicine - PN: Subj *Date: 03/17/19 *Time: 09:00 Exam Vital signs and Labs for Last 24 Hours: Temp Pulse Resp BP Pulse Ox 97.5 F L 61 18 145/84 H 96 03/17/19 04:00 03/17/19 07:54 03/17/19 07:54 03/17/19 07:54 03/17/19 07:54 Laboratory Results - last 24 hr 03/15/19 10:40: Triglycerides 340 H, Cholesterol 149, LDL Cholesterol 41, VLDL Cholesterol 68 H, HDL Cholesterol 40, Cholesterol/HDL Ratio 3.7 H 03/17/19 05:30: Triglycerides 172, Cholesterol 145, LDL Cholesterol 70, VLDL Cholesterol 34, HDL Cholesterol 41, Cholesterol/HDL Ratio 3.5 03/17/19 05:30: WBC 5.5, RBC 4.00 L, Hgb 13.8 L, Hct 41.4 L, MCV 103.5 H, MCH 34.6 H, MCHC 33.4, RDW 13.6, Plt Count 86 L, MPV 10.6 H, Neut % (Auto) 64.5, Lymph % (Auto) 26.3, [place] % (Auto) 6.4, Eos % (Auto) 2.2, Baso % (Auto) 0.5, Neut # (Auto) 3.6, Lymph # (Auto) 1.5, [place] # (Auto) 0.4, Eos # (Auto) 0.1, Baso # (Auto) 0.0 03/17/19 05:30: Total Bilirubin 0.6, Direct Bilirubin 0.2, Indirect Bilirubin 0.4, AST 26, ALT 30, Alkaline Phosphatase 55, Total Protein 7.1, Albumin 3.6 03/17/19 05:30: Sodium 140, Potassium 4.2, Chloride 105, Carbon Dioxide 28, Anion Gap 11.2, BUN 13, Creatinine 1.08, Estimated Creat Clear 82, Estimated GFR 68, Est GFR ( Amer) 83, Glucose 91, Calcium 8.4 L, Total Bilirubin 0.6, AST 27, ALT 28, Alkaline Phosphatase 54, Total Protein 7.0, Albumin 3.6, Globulin 3.4 H, Albumin/Globulin Ratio 1.1 I & O for Last 24 hours: Intake & Output 03/14/19 03/15/19 03/16/19 03/17/19 23:59 23:59 23:59 23:59 Intake Total 1320 / 1320 569 / 569 788 / 788 Output Total 550 / 550 400 / 400 Balance 1320 / 1320 388 / 388 Weight 199 lb 9 oz 199 lb 8.999 oz 193 lb 9 oz Assessment and Plan (1) Non-STEMI (non-ST elevated myocardial infarction) Current visit: Yes Status: Acute Category: Medical Code(s): I21.4 - Non-ST elevation (NSTEMI) myocardial infarction (2) Tobacco abuse Current visit: Yes Status: Acute Category: Medical Code(s): Z72.0 - Tobacco use (3) Alcohol abuse Current visit: Yes Status: Acute Category: Medical Code(s): F10.10 - Alcohol abuse, uncomplicated (4) History of coronary artery bypass graft x 3 Current visit: No Status: Chronic Category: Surgical Code(s): Z95.1 - Presence of aortocoronary bypass graft (5) Hyperlipidemia Current visit: No Status: Chronic Qualifiers: Hyperlipidemia type: unspecified Qualified Code(s): E78.5 - Hyperlipidemia, unspecified Category: Medical Code(s): E78.5 - Hyperlipidemia, unspecified (6) Hypertension Current visit: No Status: Chronic Qualifiers: Hypertension type: essential hypertension Qualified Code(s): I10 - Essential (primary) hypertension Category: Medical Code(s): I10 - Essential (primary) hypertension (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 Current visit: No Status: Chronic Category: Medical Code(s): Z79.01 - bed bug exterminator (current) use of anticoagulants (8) Left carotid bruit Current visit: Yes Status: Acute Category: Medical Code(s): R09.89 - Other specified symptoms and signs involving the circulatory and respiratory systems (9) RBBB Current visit: No Status: Chronic Category: Medical Code(s): I45.10 - Unspecified right bundle-branch block (10) Atrial fibrillation Current visit: No Status: Chronic Qualifiers: Atrial fibrillation type: paroxysmal Qualified Code(s): I48.0 - Paroxysmal atrial fibrillation Category: Medical Code(s): I48.91 - Unspecified atrial fibrillation - Assessment and plan all Dx Assessment and Plan for all problems:: Saw patient, agree with above note.
--- NOTE | 2019-03-17 21:59 | Discharge Summary ---
General - General Admission date:: 03/14/19 Discharge date: 03/17/19 HPI HPI: This is 68-year-old white male who began having discomfort between his shoulder blades yesterday evening. The pain spread up into the neck and chest. He has known coronary artery disease with coronary artery bypass grafting and one subsequent stent. He most recently has been cared for by Dr. Foster. He came to the emergency room at [facility] and was admitted. He has had elevations in his troponin indicating a non-STEMI. There was a cardiac consultation ordered. He has risk factors that include family history and a personal history of smoking. His daughter who is present also states that he drinks bourbon daily greater than 4 drinks a day. Included in his chart in the emergency room is the report from his last cardiac catheterization where he underwent successful stenting of the saphenous vein graft supplying the dominant circumflex artery. He had one drug-eluting stent placed and the stenosis was reduced to 0%. His left internal mammary artery graft to the LAD was patent. Hospital Course Hospital Course: The patient's initial chest x-ray showed nothing acute. He did have chronic atrial fibrillation and was on Xarelto and Plavix. These were continued. Dr. Aguillon spoke with Dr. Foster about the case and Dr. Foster wanted to perform a cardiac catheterization the next day. The patient had a heart cath on 03/16/2019 and had [address] Foster felt he would need to continue on Plavix and Xarelto as well as an 81 mg aspirin daily. He felt he would need cardiac rehab and would also need to avoid tobacco products. He was started on a statin and losartan, but his heart rate was too low to add a beta-sudhakar. He had an echo which showed an EF of 55% with grade 1 diastolic dysfunction. He had no further chest pain or shortness of air after his heart cath and felt much better. He wanted to be discharged home. He was stable to be discharged Plavix, Xarelto, losartan, nifedipine, a statin, and on aspirin 81 mg for 30 days after the procedure, at which time the aspirin can be discontinued. He will need to follow-up with Dr. REYES in 1 week. Objective Vital signs: Temp Pulse Resp BP Pulse Ox 97.7 F 61 18 144/90 H 96 03/17/19 08:00 03/17/19 10:00 03/17/19 10:00 03/17/19 10:00 03/17/19 10:00 Narrative: - Constitutional no acute distress - *Routine HEENT Exam Eye: Present: PERRL. Absent: scleral injection ENT: Present: mucous membranes moist - *Routine Neck Exam Present: full ROM - Routine Chest/Breast/Axilla Exam Chest wall: Absent: tenderness, pacemaker - *Routine Respiratory Exam Present: rales (Good air movement. Bibasilar rales.) - *Routine Cardiovascular Exam Present: RRR, murmur (Prominent aortic murmur. Grade 3/6) - *Routine Abdominal Exam Present: soft. Absent: tenderness - *Routine Extremities Exam Absent: edema - *Routine Neurological Exam Present: alert, oriented X3 Results Labs on day of discharge: Labs from last 24 hours 03/17/19 03/17/19 03/17/19 05:30 05:30 05:30 WBC 5.5 RBC 4.00 L Hgb 13.8 L Hct 41.4 L MCV 103.5 H MCH 34.6 H MCHC 33.4 RDW 13.6 Plt Count 86 L MPV 10.6 H Neut % (Auto) 64.5 Lymph % (Auto) 26.3 [place] % (Auto) 6.4 Eos % (Auto) 2.2 Baso % (Auto) 0.5 Neut # (Auto) 3.6 Lymph # (Auto) 1.5 [place] # (Auto) 0.4 Eos # (Auto) 0.1 Baso # (Auto) 0.0 Sodium 140 Potassium 4.2 Chloride 105 Carbon Dioxide 28 Anion Gap 11.2 BUN 13 Creatinine 1.08 Estimated Creat Clear 82 Estimated GFR 68 Est GFR ( Amer) 83 Glucose 91 Calcium 8.4 L Total Bilirubin 0.6 0.6 Direct Bilirubin 0.2 Indirect Bilirubin 0.4 AST 27 26 ALT 28 30 Alkaline Phosphatase 54 55 Total Protein 7.0 7.1 Albumin 3.6 3.6 Globulin 3.4 H Albumin/Globulin Ratio 1.1 Triglycerides Cholesterol LDL Cholesterol VLDL Cholesterol HDL Cholesterol Cholesterol/HDL Ratio 03/17/19 05:30 WBC RBC Hgb Hct MCV MCH MCHC RDW Plt Count MPV Neut % (Auto) Lymph % (Auto) [place] % (Auto) Eos % (Auto) Baso % (Auto) Neut # (Auto) Lymph # (Auto) [place] # (Auto) Eos # (Auto) Baso # (Auto) Sodium Potassium Chloride Carbon Dioxide Anion Gap BUN Creatinine Estimated Creat Clear Estimated GFR Est GFR ( Amer) Glucose Calcium Total Bilirubin Direct Bilirubin Indirect Bilirubin AST ALT Alkaline Phosphatase Total Protein Albumin Globulin Albumin/Globulin Ratio Triglycerides 172 Cholesterol 145 LDL Cholesterol 70 VLDL Cholesterol 34 HDL Cholesterol 41 Cholesterol/HDL Ratio 3.5 DS: Diagnosis - Discharge Diagnosis (1) Non-STEMI (non-ST elevated myocardial infarction) Status: Acute (2) Tobacco abuse Status: Acute (3) Alcohol abuse Status: Acute (4) History of coronary artery bypass graft x 3 Status: Chronic (5) Hyperlipidemia Status: Chronic (6) Hypertension Status: Chronic (7) retirement current use of anticoagulant therapy Status: Chronic (8) Left carotid bruit Status: Acute (9) RBBB Status: Chronic (10) Atrial fibrillation Status: Chronic Discharge Plan - Patient Discharge Instructions ACTIVITY: Continue current activity DIET: continue same diet Patient Instructions: DI for Acute Coronary Syndrome, Heart Attack, Cardiac Catheterization, Acute Coronary Syndrome, DI for Alcohol Abuse, DI for Surgical Site Infection, DI for Warfarin Therapy, How to Quit Tobacco Products - Follow up Plan Follow up with: Yazan Castellanos MD [Primary Care Provider] - 2 weeks Chicho Hendricks MD [Staff Physician] - 1 week Disposition: Home, Self-[facility] Medications: Home Medications Medication Instructions Recorded Confirmed Type Levothyroxine Sodium 175 mcg PO DAILY 03/03/18 03/15/19 History [Levothyroxine 175mcg (0.175mg) Tab] raNITIdine HCl [Ranitidine HCl] 150 mg PO BID 03/03/18 03/15/19 History omega 9-per-ngv-fish oil 500 mg 1 cap PO QID cap 03/11/18 03/15/19 History (200mg-300mg)-1,000 mg capsule clopidogrel 75 mg tablet 75 mg PO DAILY #30 tab 08/29/18 03/15/19 Rx isosorbide mononitrate ER 60 mg 60 mg PO DAILY #30 tab 09/05/18 03/15/19 Rx tablet,extended release 24 hr nifedipine ER 60 mg 60 mg PO DAILY #90 tab 10/27/18 03/15/19 Rx tablet,extended release 24 hr rivaroxaban 20 mg tablet 20 mg PO DAILY #30 tab 10/27/18 03/15/19 Rx loratadine 10 mg tablet 10 mg PO DAILY 11/20/18 03/15/19 History Ascorbic Acid [C-500] 500 mg PO DAILY 03/14/19 03/15/19 History Magnesium 250 mg PO DAILY 03/14/19 03/15/19 History Atorvastatin Calcium [Atorvastatin 40 mg PO HS 03/15/19 03/15/19 History 40mg Tab] Cholecalciferol (Vitamin D3) 5,000 unit PO DAILY 03/15/19 03/15/19 History [Vitamin D3] Losartan Potassium 100 mg PO DAILY 03/15/19 03/15/19 History Multivit-Min/FA/Lycopen/Lutein 1 each PO DAILY 03/15/19 03/15/19 History [Centrum Silver Tablet] Pyridoxine HCl (Vitamin B6) 100 mg PO DAILY 03/15/19 03/15/19 History [Vitamin B-6] Sildenafil Citrate 100 mg PO NEEDED PRN 03/15/19 03/15/19 History Aspirin [Aspir 81] 81 mg PO DAILY #30 tablet. 03/17/19 Rx Prescriptions/Medication Reconciliation: New Aspirin [Aspir 81] 81 mg PO DAILY #30 tablet. Continued omega 4-sbv-sts-fish oil 500 mg (200mg-300mg)-1,000 mg capsule 1 cap PO QID cap isosorbide mononitrate ER 60 mg tablet,extended release 24 hr 60 mg PO DAILY #30 tab rivaroxaban 20 mg tablet 20 mg PO DAILY #30 tab clopidogrel 75 mg tablet 75 mg PO DAILY #30 tab nifedipine ER 60 mg tablet,extended release 24 hr 60 mg PO DAILY #90 tab loratadine 10 mg tablet 10 mg PO DAILY Levothyroxine Sodium [Levothyroxine 175mcg (0.175mg) Tab] 175 mcg PO DAILY Magnesium 250 mg PO DAILY Ascorbic Acid [C-500] 500 mg PO DAILY Multivit-Min/FA/Lycopen/Lutein [Centrum Silver Tablet] 1 each PO DAILY Sildenafil Citrate 100 mg PO NEEDED PRN PRN Reason: ED. Atorvastatin Calcium [Atorvastatin 40mg Tab] 40 mg PO HS Losartan Potassium 100 mg PO DAILY raNITIdine HCl [Ranitidine HCl] 150 mg PO BID Pyridoxine HCl (Vitamin B6) [Vitamin B-6] 100 mg PO DAILY Cholecalciferol (Vitamin D3) [Vitamin D3] 5,000 unit PO DAILY - Problem Reconciliation Problems Reviewed?: Yes
--- NOTE | 2019-03-18 18:46 | Cardiology Report ---
APPROVED REPORT Cardiac Cath Lab Radiology Technologist: CT Laterality: Bilateral Study Quality: Adequate Indications: L carotid bruit Doppler Spectral Velocity Analysis ECA (R) 82.10/9.20 cm/sECA (L) 51.00/9.80 cm/s dICA (R) 58.60/20.40 cm/sdICA (L) 58.10/17.60 cm/s Sharon (R) 51.00/19.30 cm/smICA (L) 58.30/22.00 cm/s pICA (R) 46.20/15.20 cm/spICA (L) 46.50/18.30 cm/s dCCA (R) 54.70/10.70 cm/sdCCA (L) 65.70/10.70 cm/s pCCA (R) 61.60/11.10 cm/spCCA (L) 60.40/7.10 cm/s Vert (R) 34.20/12.00 cm/sVert (L) 30.50/8.30 cm/s Conclusion Duplex evaluation demonstrates stenosis of the right proximal internal carotid artery <20% with PSV <140 cm/sec, EDV <100 cm/sec, and IC/CC Ratio <4.0. Duplex evaluation demonstrates stenosis of the left proximal internal carotid artery <20% with PSV <140 cm/sec, EDV <100 cm/sec, and IC/CC Ratio <4.0. Duplex evaluation demonstrates antegrade flow of the bilateral Vertebral Arteries. Electronically signed by : Cristo Aden MD 03/18/2019 18:45:45
== END 2019-03-17 10:19 | disposition home or self-care (01) | DRG 247 ==
LOC: 2ND 17:34 → ER 17:34 → 2ND 18:25 → OBSVTOIN 18:58 → 2ND 19:00 → ICU 03-16 16:07
PROVIDERS: ADMIT Emergency Medicine; ATTEND Family Medicine
DX: Z95.5 Presence of coronary angioplasty implant and graft; Z79.01 Long term (current) use of anticoagulants; I25.708 Atherosclerosis of coronary artery bypass graft(s), unspecified, with other forms of angina pectoris; Z87.891 Personal history of nicotine dependence; I45.10 Unspecified right bundle-branch block; E78.5 Hyperlipidemia, unspecified; I10 Essential (primary) hypertension; I25.2 Old myocardial infarction; I48.0 Paroxysmal atrial fibrillation; I25.118 Atherosclerotic heart disease of native coronary artery with other forms of angina pectoris; Z79.899 Other long term (current) drug therapy; I21.4 Non-ST elevation (NSTEMI) myocardial infarction; I24.9 Acute ischemic heart disease, unspecified
CPT/HCPCS: 36252; 36415; 71020; 71046; 80048; 80053; 80061; 80076; 84443; 84484; 85025; 92928; 93005; 93306; 93459; 93880; 99152; 99153; 99284; C1725; C1760; C1769; C1876; C1894; C9600; J0583; J2405; Q9967

== ENCOUNTER 2019-03-25 13:39 | Outpatient (RCR) | payer MEDICARE, SELFPAY | END 2019-07-15 10:29 | disposition home or self-care (01) | LOC: PT 13:39 | PROVIDERS: Visit Provider Internal Medicine | DX: Z95.5 Presence of coronary angioplasty implant and graft (principal) | CPT/HCPCS: 93798 ==

== ENCOUNTER 2019-07-28 13:41 | Emergency (ER) | payer MEDICARE, SELFPAY ==
[2019-07-28 13:52] VITALS: BP 152/92; PULSE 88; RESP 20; TEMP 36.6; O2SAT 98; BMI 27.8
[2019-07-28 13:57] VITALS: BP 152/92; PULSE 88; RESP 20; TEMP 36.6; O2SAT 98
--- NOTE | 2019-07-28 13:57 | PC.NURSE ---
4 SUTURES REMOVED FROM RIGHT EYEBROW WITHOUT DIFFICULTY
== END 2019-07-28 13:59 | disposition home or self-care (01) ==
LOC: UTC 13:48
PROVIDERS: Emergency Provider Nurse Practitioner; PCP Family Medicine
DX: S01.81XD Laceration without foreign body of other part of head, subsequent encounter (principal)
CPT/HCPCS: G0463; 99201

== ENCOUNTER → 2020-04-16 10:10 | Outpatient (CLI) | payer MEDICARE, SELFPAY ==
--- NOTE | 2020-04-16 10:23 | MR_ITS ---
PROCEDURE: MR HEAD/BRAIN WO/W CON Referring Doctor: Yazan Castellanos Patient Age:69Y CLINICAL INDICATION: MEMORY LOSS history of memory loss denies injury or trauma. COMPARISON: No exams were available for comparison TECHNIQUE: Multiplanar multisequence pre and postcontrast MRI on 1.5 T MRI . Pre contrast images include axial T1, T2, FLAIR, ADC/diffusion, along with sagittal T2 and coronal FLAIR . Postcontrast T1 weighted coronal and axial images following 19 mL ProHance. FINDINGS: No acute intracranial findings No territorial infarct or acute findings. No acute infarct on diffusion images. Normal anatomy. Cranial cervical junction is normal Sella suprasellar region unremarkable. No mass lesion. No abnormal areas of enhancement. No extra-axial nor subdural collections..No mass lesions. No abnormal areas enhancement with IV. Contrast. Diffuse cerebral atrophy. Prominent chronic small vessel deep white-matter ischemic gliotic changes at cerebral hemispheres. fairly extensive with rather confluenthigh-signal foci throughout the deep white matter cerebral hemispheres along with rim of high signal surrounding the mildly dilated lateral ventricles. The ventricular dilatation most certainly reflects cerebral atrophy; unlikely normal pressure hydrocephalus all this is briefly considered. As stated the deep white-matter signal abnormalities mainly at periventricular regions as well as some areas more peripheral/subcortical. However on the left high signal extends inferiorly to involve the the anterior superior aspect of left basal ganglia as well as most superior aspect of the anterior limb left internal capsule. Some scattered small foci at the posterior right basal ganglia. Scant activity at external capsule bilaterally. The no focal lesions of the uncus or hippocampus but there suspect the corresponding mild atrophy in these regions. Although this is not a MRA study, I would note that the images and region of of [id number] were unremarkable The posterior fossa appears satisfactory with no signal abnormalities. CP angles clear. Middle ear IAC's mastoids unremarkable. Paranasal sinus clear except for some scant mucosal thickening anterior ethmoid air cells on right. Engorgement nasal turbinates the deviation nasal septum to the left.. Dural venous sinuses unremarkable IMPRESSION: 1... No acute findings. No acute or recent infarct no territorial infarct. No mass lesions; no abnormal areas of enhancement 2..Extensive chronic small vessel deep white-matter ischemic gliotic changes cerebral hemispheres bilaterally This reflects microangiopathic ischemic changes commonly encounter with maturing brain, particularly seen in those with underlying vascular risk factors (smoking hypertension diabetes etc) 2. Diffuse cerebral atrophy, slightly advanced for age. With corresponding atrophy uncus and hippocampus noted Mild ventricular dilatation appears secondary to the diffuse central and cortical cerebral atrophy Dictated by: Waldo Rinaldi MD 04/16/2020 14:23 Waldo Rinaldi MD in [place] 04/16/2020 14:23
== END ==
PROVIDERS: PCP Family Medicine; Visit Provider Family Medicine
DX: R41.3 Other amnesia (principal)
CPT/HCPCS: 70553; A9576

== ENCOUNTER → 2020-04-28 10:32 | Outpatient (CLI) | payer MEDICARE, SELFPAY ==
[2020-04-28 11:10] LABS: Basophils % 0.5 % (0.1-2.0); Eosinophils # 0.1 K/mm3 (0.0-0.4); Eosinophils % 1.7 % (0.1-12.0); Hematocrit 43.5 % (42.0-52.0); Hemoglobin 14.9 g/dL (14.1-18.0); Lymphocytes # 1.5 K/mm3 (0.7-4.5); Lymphocytes % 19.1 % (10-50); Mean Corpuscular HGB Conc 34.3 g/dL (31.8-35.4); Mean Corpuscular Hemoglobin 37.4 pg (27.0-31.2); Mean Platelet Volume 10.6 fl (7.4-10.4); Monocytes # 0.6 K/mm3 (0.1-1.0); Neutrophils # 5.4 K/mm3 (1.8-7.8); Neutrophils % 70.8 % (37.0-80.0); Platelet Count 105 K/mm3 (142-424); Red Blood Count 3.99 M/mm3 (4.60-6.20); Red Cell Distribution Width 14.4 % (11.5-17.5); White Blood Count 7.7 K/mm3 (4.8-10.8)
[2020-04-28 12:06] LABS: Chloride 105 mmol/L (98-107)
[2020-04-28 12:07] LABS: Potassium 3.4 mmoL/L (3.5-5.1); Sodium 140 mmol/L (136-145)
[2020-04-28 12:09] LABS: Alanine Aminotransferase 35 U/L (12-78); Aspartate Amino Transferase 57 U/L (17-59); Blood Urea Nitrogen 19 mg/dl (9-20); Estimated Glomerular Filt Rate 60 ml/min (>60); GFR (African American) 73 ML/MIN (>60)
[2020-04-28 12:10] LABS: Albumin Level 4.9 g/dl (3.5-5.0); Albumin/Globulin Ratio 1.4 (1.1-1.8); Alkaline Phosphatase 71 U/L (38-126); Anion Gap 14.4 mEq/L (5-15); Bilirubin,Total 1.1 mg/dl (0.2-1.3); Carbon Dioxide 24 mmol/L (22.0-30.0); Globulin 3.5 g/dL (1.3-3.2); Glucose 124 mg/dl (74-100); Total Protein,Serum 8.4 g/dl (6.3-8.2)
[2020-04-28 13:50] LABS: Vitamin B12 460 pg/mL (239-931)
[2020-04-28 13:52] LABS: Folate 7.59 ng/mL
[2020-04-29 12:46] LABS: Rapid Plasma Reagin Ab Titer Non Reactive (NonRea<1:1)
[2020-05-04 09:37] LABS: Vitamin B1 136.5 nmol/L (66.5-200.0)
== END ==
PROVIDERS: Visit Provider Specialist
DX: F03.90 Unspecified dementia, unspecified severity, without behavioral disturbance, psychotic disturbance, mood disturbance, and anxiety (principal); G93.40 Encephalopathy, unspecified; E78.5 Hyperlipidemia, unspecified; I42.9 Cardiomyopathy, unspecified
CPT/HCPCS: 36415; 80053; 82607; 82746; 84425; 84443; 85025; 86592

== ENCOUNTER → 2020-06-30 12:07 | Outpatient (CLI) | payer MEDICARE, SELFPAY | LOC: RT 12:10 | PROVIDERS: PCP Family Medicine; Visit Provider Internal Medicine Cardiovascular Disease | DX: I42.9 Cardiomyopathy, unspecified (principal); I48.0 Paroxysmal atrial fibrillation; R00.1 Bradycardia, unspecified; I10 Essential (primary) hypertension; F10.10 Alcohol abuse, uncomplicated | CPT/HCPCS: 93225; 93226 ==

== ENCOUNTER → 2020-11-21 07:07 | Outpatient (CLI) | payer MEDICARE, SELFPAY ==
--- NOTE | 2020-11-21 | CA_ITS ---
APPROVED REPORT Exam: Pharmacologic Technologist: ,, Ht: 5 ft 11 in Wt: 199 lbs BSA: 2.10 m2 HR: 61 bpm BP: 194/77 mmHg Medical History Medications: Amlodipine,,,,, Levothyroxine,,,,, Atorvastatin,,,,, CloPIdogrel,,,,, BisOPROLOL Fumarate,,,,, Sertraline,,,,, Losartan HCTZ,,,,, RIvaROXABAN,,,,, Asapirin,,,,, Namenda,,,,, Vitamin C, D3, B1, B6,,,,, Stress Test Details Test: LEXISCAN HR Resting HR: 59 bpm Max Heart Rate (APMHR): 151.885191 bpm Max HR Achieved: 81 bpm Target HR (85% APMHR): 128.443531 bpm % of APMHR: 53.64 BP Resting BP: 194/77 mmHg Max BP: 194/77 mmHg ECG Resting ECG: NSR, RBBB Clinical Exercise duration: 04:03 min Highest Stage Achieved: Exercise capacity: 1.0 METs Stress ECG Conclusion Pt moving. Needed to go to the bathroom. Symptoms: None Arrhythmias/Ectopy: None ST-T Changes: <1.5mm ST Segment changes. Conclusion: Non-diagnostic Test Summary . . . . . Stop exercise at 04:03 . . Electronically signed by : Chicho Hendricks MD 11/21/2020 18:22:04
--- NOTE | 2020-11-21 07:07 | NM_ITS ---
APPROVED REPORT Exam: Nuclear Stress Test Indication: CAD, Hx of Mi, CABG, HTN, High cholesterol, Tobacco use, Patient Location: Outpatient Stress Tech: Lydia Gonzalez [place] Tech:Trixie Cisneros, ARRT, RT (R)(N) Ht: 6 ft 0 in Wt: 210 lbs HR: 61 bpm BP: 194/77 mmHg BSA: 2.18 m2 History: CAD, Hx of Mi, CABG, HTN, High cholesterol, Tobacco use, Procedure: Patient received a 0.4 mg of intravenous Lexiscan, resting heart rate 61 bpm, resting blood pressure 194/77 mmHg, with Lexiscan maximum heart rate achived was 76 bpm which is Less than 85 % of the maximum predicted heart rate and blood pressure was 161/83 mmHg. With Lexiscan, patient denied any complaint of chest pain. Electrocardiogram Resting electrocardiogram showed sinus rhythm right bundle branch block nonspecific ST-T changes, with Lexiscan there is less than 1.[address] segment depression noted from the baseline EKG. The EKG portion of the Lexiscan is nondiagnostic. Cardiac Stress and Resting SPECT Images: Cardiac Stress and Resting SPECT images were obtained using technetium 99m Myoview 29.9 mCi stress and 10.32 mCi at rest. Gated SPECT for analysis of segmental wall motion and calculation of the ejection fraction also done. Prone images were also obtained. Cardiac stress and resting SPECT images show reversible ischemia involving a moderate to large sized area in the inferolateral wall, computer derived ejection fraction is 52% with no regional wall motion abnormality, right ventricle is mildly enlarged with normal contractility. Conclusion: 1. The EKG portion of the Lexiscan is nondiagnostic. 2. Scintigraphic evidence of reversible ischemia involving the moderate to large sized area of inferolateral wall, compared to the ejection fraction is 52% with no regional wall motion abnormality, right ventricle is mildly enlarged with normal contractility. 3. Abnormal Lexiscan Myoview study. Electronically signed by : Chicho Hendricks MD 11/21/2020 18:30:29
--- NOTE | 2020-11-21 09:17 | HMH.ITSHM ---
Current Home Medications as stated by this patient Luis Daniel Nicholas or procurement representative. []ASA ATORVASTATIN BISOPROLOL CLOPIDOGREL LEVOTHYROXINE MERATINE HYZACIR SERTRALINE MULTIVITAMIN VITAMIN B XARELTO
== END ==
PROVIDERS: PCP Family Medicine; Visit Provider Physician Assistant
DX: I21.4 Non-ST elevation (NSTEMI) myocardial infarction (principal); I25.10 Atherosclerotic heart disease of native coronary artery without angina pectoris
CPT/HCPCS: 78452; 93017; A9502; J2785

== ENCOUNTER → 2021-01-06 12:51 | Outpatient (CLI) | payer MEDICARE, SELFPAY ==
[2021-01-06 13:06] LABS: Basophils % 0.7 % (0.1-2.0); Eosinophils # 0.2 K/mm3 (0.0-0.4); Eosinophils % 2.7 % (0.1-12.0); Hemoglobin 15.2 g/dL (14.1-18.0); Lymphocytes # 1.6 K/mm3 (0.7-4.5); Lymphocytes % 23.2 % (10-50); Mean Corpuscular HGB Conc 33.1 g/dL (31.8-35.4); Mean Corpuscular Hemoglobin 33.5 pg (27.0-31.2); Mean Platelet Volume 11.1 fl (7.4-10.4); Monocytes # 0.6 K/mm3 (0.1-1.0); Monocytes % 8.5 % (1.7-9.3); Neutrophils # 4.4 K/mm3 (1.8-7.8); Platelet Count 123 K/mm3 (142-424); Red Blood Count 4.55 M/mm3 (4.60-6.20); Red Cell Distribution Width 14.1 % (11.5-17.5); White Blood Count 6.8 K/mm3 (4.8-10.8)
[2021-01-06 13:43] LABS: Chloride 101 mmol/L (98-107); Potassium 4.3 mmoL/L (3.5-5.1); Sodium 142 mmol/L (136-145)
[2021-01-06 13:46] LABS: Anion Gap 12.3 mEq/L (5-15); Blood Urea Nitrogen 13 mg/dl (9-20); Carbon Dioxide 33 mmol/L (22.0-30.0); Estimated Glomerular Filt Rate 66 ml/min (>60); GFR (African American) 80 ML/MIN (>60)
[2021-01-06 13:47] LABS: Calcium 9.7 mg/dl (8.4-10.2); Glucose 115 mg/dl (74-100)
== END ==
PROVIDERS: Visit Provider Urology
DX: E78.5 Hyperlipidemia, unspecified (principal); F17.200 Nicotine dependence, unspecified, uncomplicated; I11.9 Hypertensive heart disease without heart failure; I25.10 Atherosclerotic heart disease of native coronary artery without angina pectoris; I48.0 Paroxysmal atrial fibrillation; R94.39 Abnormal result of other cardiovascular function study; Z79.01 Long term (current) use of anticoagulants; Z95.1 Presence of aortocoronary bypass graft; I63.9 Cerebral infarction, unspecified; Z20.822 Contact with and (suspected) exposure to COVID-19; Z01.812 Encounter for preprocedural laboratory examination
CPT/HCPCS: 36415; 80048; 85025; C9803; U0003; U0005

== ENCOUNTER 2021-01-09 08:41 | Day surgery (SDC) | payer MEDICARE, SELFPAY ==
[2021-01-09] VITALS (13 sets, daily range): BP systolic 118–189; BP diastolic 59–104; PULSE 48–56; RESP 13–20; TEMP 36.8; O2SAT 94–979; BMI 28.4
--- NOTE | 2021-01-09 07:12 | IR_ITS ---
APPROVED REPORT Patient Location: Outpatient PROCEDURES Left heart catheterization Left ventriculogram Selective coronary angiogram Left internal mammary angiography Selective engagement of saphenous vein graft to the right coronary artery Selective engagement of the saphenous vein graft to the circumflex artery Drug-eluting stent deployment to the saphenous vein graft supplying the right coronary artery INDICATION Coronary artery disease, History of coronary bypass surgery, High risk abnormal Myoview inferolateral ischemia, Angina pectoris Informed consent was obtained prior to the procedure. COMPLICATIONS None Estimated Blood Loss: less than 10ml TECHNIQUE One percent lidocaine used to anesthetize the right groin. The right femoral artery was accessed via the Seldinger technique and a 5 Latvian sheath was placed in the right femoral artery. A JL 4, JR4 catheter were used to perform left heart catheterization, left ventriculogram selective coronary angiography as well as selective engagement of the 2 vein grafts and the left internal mammary artery. At the end of the diagnostic angiogram therapeutic heparin was administered and the 5 Latvian sheath was exchanged for a 6 Latvian sheath. A JR4 guide catheter was placed in the saphenous vein graft supplying the right coronary and a Choice PT extra-support wire was placed distally. A 3.5 x 15 mm resolute Hank stent was deployed at 20 kia reducing the severe stenosis to 0%. MARII-3 flow was present before and after the procedure. At the procedure the patient was transferred to the postop holding area in stable condition where the groin was reprepped closure changed sheath was removed good hemostasis was achieved using Perclose device. ANGIOGRAPHIC RESULTS The left main artery Distally subtotally occluded The left anterior descending artery Ostially occluded The circumflex artery Ostially occluded The right coronary artery Ostially occluded The GALLEGOS ventriculogram reveals Not performed The left ventricular end-diastolic pressure Not measured Left internal mammary artery is widely patent to the LAD Saphenous vein graft to the right coronary has a proximal concentric 70% stenosis Saphenous vein graft to the circumflex artery is widely patent to a large circumflex system IMPRESSION Severe disease in the saphenous vein graft to the right coronary artery Successful stenting of the saphenous vein graft to the right coronary severe disease reduced to 0% with 1 drug-eluting stent Patent DUNN to the LAD Patent saphenous vein graft to circumflex artery PLAN 1. Dual antiplatelet therapy 2. Cardiac rehabilitation 3. Avoidance of tobacco products 4. Risk factor modification Electronically signed by : Perfecto Foster MD 01/09/2021 13:44:47
--- NOTE | 2021-01-09 13:09 | HMH.PHACLD ---
Luis Daniel Nicholas has received discharge medication counseling on the following medications: -PLAVIX -ASA -BISOPROLOL -LOSARTAN -ATORVASTATIN
== END 2021-01-09 15:52 | disposition home or self-care (01) ==
LOC: CATHLAB 08:43
PROVIDERS: PCP Family Medicine; Visit Provider Internal Medicine
DX: E78.5 Hyperlipidemia, unspecified (principal); I11.9 Hypertensive heart disease without heart failure; I25.10 Atherosclerotic heart disease of native coronary artery without angina pectoris; I48.0 Paroxysmal atrial fibrillation; R94.39 Abnormal result of other cardiovascular function study; Z79.01 Long term (current) use of anticoagulants; Z95.1 Presence of aortocoronary bypass graft; F17.210 Nicotine dependence, cigarettes, uncomplicated; I25.810 Atherosclerosis of coronary artery bypass graft(s) without angina pectoris; I25.82 Chronic total occlusion of coronary artery
CPT/HCPCS: 92937; 93459; 99152; C1725; C1760; C1769; C1874; C1894; C9604; J0583; Q9967

== ENCOUNTER → 2021-01-18 14:39 | Outpatient (CLI) | payer MEDICARE, SELFPAY ==
[2021-01-18 15:01] LABS: Basophils % 0.6 % (0.1-2.0); Eosinophils # 0.1 K/mm3 (0.0-0.4); Eosinophils % 2.2 % (0.1-12.0); Hematocrit 47.7 % (42.0-52.0); Hemoglobin 15.5 g/dL (14.1-18.0); Lymphocytes # 1.6 K/mm3 (0.7-4.5); Lymphocytes % 24.8 % (10-50); Mean Corpuscular HGB Conc 32.5 g/dL (31.8-35.4); Mean Corpuscular Hemoglobin 32.3 pg (27.0-31.2); Mean Corpuscular Volume 99.5 fl (80-94); Mean Platelet Volume 11.4 fl (7.4-10.4); Monocytes # 0.6 K/mm3 (0.1-1.0); Neutrophils # 4.2 K/mm3 (1.8-7.8); Neutrophils % 63.5 % (37.0-80.0); Platelet Count 137 K/mm3 (142-424); Red Blood Count 4.79 M/mm3 (4.60-6.20); Red Cell Distribution Width 14.8 % (11.5-17.5); White Blood Count 6.6 K/mm3 (4.8-10.8)
[2021-01-18 15:51] LABS: Chloride 104 mmol/L (98-107); Sodium 143 mmol/L (136-145)
[2021-01-18 15:52] LABS: Potassium 4.3 mmoL/L (3.5-5.1)
[2021-01-18 15:54] LABS: Blood Urea Nitrogen 15 mg/dl (9-20); Estimated Glomerular Filt Rate 84 ml/min (>60); GFR (African American) 101 ML/MIN (>60)
[2021-01-18 15:55] LABS: Anion Gap 12.3 mEq/L (5-15); Calcium 9.9 mg/dl (8.4-10.2); Carbon Dioxide 31 mmol/L (22.0-30.0); Glucose 102 mg/dl (74-100)
== END ==
PROVIDERS: Visit Provider Internal Medicine
DX: Z95.5 Presence of coronary angioplasty implant and graft (principal); Z51.81 Encounter for therapeutic drug level monitoring; Z79.01 Long term (current) use of anticoagulants
CPT/HCPCS: 36415; 80048; 85025

== ENCOUNTER → 2021-06-13 13:32 | Outpatient (POV) | payer MEDICARE, SELFPAY ==
--- NOTE | 2021-08-18 03:30 | PC.NURSE ---
records sent to [facility] for continuity of care
== END ==
PROVIDERS: Visit Provider Dermatology
DX: Z00.00 Encounter for general adult medical examination without abnormal findings (principal)

== ENCOUNTER 2021-08-22 12:41 | Observation (INO) | payer MEDICARE, SELFPAY ==
[2021-08-22 12:42] VITALS: BP 164/63; PULSE 76; RESP 16; TEMP 37.2; O2SAT 95; BMI 27.1
--- NOTE | 2021-08-22 12:47 | PC.NURSE ---
Missy Fox RN at BS
[2021-08-22 12:50] VITALS: BP 164/63; PULSE 82; O2SAT 96
--- NOTE | 2021-08-22 12:51 | PC.NURSE ---
ED MD at
--- NOTE | 2021-08-22 12:57 | XR_ITS ---
FINAL REPORT CLINICAL HISTORY: weakness COMPARISON: June 22, 2019 FINDINGS: The heart size is normal. The patient is status post median sternotomy. The mediastinum is within normal limits. There is no acute cardiopulmonary process. There is no pleural effusion. There is no pneumothorax. The bony thorax is intact. IMPRESSION: No acute cardiopulmonary process. Reviewed, Interpreted and Dictated by Seferino Christy III, MD Transcribed by Marco A Berman Authenticated by Seferino Christy III, MD on 08/22/2021 02:23:35 PM [facility]
--- NOTE | 2021-08-22 12:57 | HMH.EDGENADL ---
ED Disposition Clinical Impression: Unable to walk Back pain Qualifiers: Back pain location: low back pain Chronicity: acute Back pain laterality: midline Sciatica presence: with sciatica Sciatica laterality: sciatica laterality unspecified Qualified Code(s): M54.40 - Lumbago with sciatica, unspecified side Dementia Qualifiers: Dementia type: unspecified type Dementia behavioral disturbance: without behavioral disturbance Qualified Code(s): F03.90 - Unspecified dementia without behavioral disturbance Disposition: Admitted As Inpatient Condition on Discharge: Fair Referrals: Yazan Castellanos MD [Primary Care Provider] - Time of Disposition: 14:47 - Critical Care Critical Care Time: No Attestation: On 08/22/21, the high probability of a clinically significant, sudden or life threatening deterioration of the following system(s) required my full and direct attention, intervention and personal management. The time I documented below is in addition to time spent performing reported procedures but includes the following listed in this critical care notation. Medical Decision Making - Medical Records Medical records reviewed: Yes: I reviewed the patient's medical records. - Christo Inquiry Pt receiving controlled substance: No Vital Signs: 08/22/21 12:42 Temperature 98.9 F Temperature Source Oral Pulse Rate [Right] 76 Respiratory Rate 16 Blood Pressure [Right Arm] 164/63 H Blood Pressure Mean [Right Arm] 96 Blood Pressure Source [Right Arm] Automatic Cuff Blood Pressure Position [Right Arm] Sitting 02 Sat by Pulse Oximetry 95 Oxygen Delivery Method Room Air - Lab Data Lab Results 08/22/21 13:03: WBC 14.0 H, RBC 3.92 L, Hgb 13.0 L, Hct 38.7 L, MCV 98.6 H, MCH 33.1 H, MCHC 33.6, RDW 13.9, Plt Count 130 L, MPV 11.5 H, Neut % (Auto) 84.5 H, Lymph % (Auto) 7.6 L, [place] % (Auto) 6.9, Eos % (Auto) 0.7, Baso % (Auto) 0.4, Neut # (Auto) 11.8 H, Lymph # (Auto) 1.1, [place] # (Auto) 1.0, Eos # (Auto) 0.1, Baso # (Auto) 0.1, ESR 120 H 08/22/21 13:03: Sodium 136, Potassium 3.3 L, Chloride 98, Carbon Dioxide 32 H, Anion Gap 9.3, BUN 25 H, Creatinine 0.90, Estimated Creat Clear 89, Estimated GFR 84, Est GFR ( Amer) 101, Glucose 155 H, Calcium 9.6, Total Bilirubin 1.3, AST 59, ALT 57, Alkaline Phosphatase 72, C-Reactive Protein 122.5 H, Total Protein 7.2, Albumin 4.0, Globulin 3.2, Albumin/Globulin Ratio 1.3 08/22/21 13:03: SARS-CoV-2 (PCR) Not detected, Influenza A Untype (PCR) Not detected, Influenza Type B (PCR) Not detected 08/22/21 14:08: Urine Color Yellow, Urine Appearance Clear, Urine pH 6.0, Ur Specific [place] 1.020, Urine Protein Trace, Urine Glucose (UA) Negative, Urine Ketones Negative, Urine Blood 1+, Urine Nitrate Negative, Urine Bilirubin Negative, Urine Urobilinogen 1.0, Ur Leukocyte Esterase Negative, Urine RBC Occasional, Urine WBC Occasional, Ur Squamous Epith Cells None, Urine Bacteria Trace Result diagrams: 08/22/21 13:03 08/22/21 13:03 Orders (Tests/Meds): ED MEDICATIONS Discontinued Medications Generic Name Dose Route Start Last Admin Trade Name Freq PRN Reason Stop Dose Admin Lidocaine 1 each 08/22/21 13:47 08/22/21 13:59 Lidocaine 5% Transdermal Patch TP 08/22/21 13:48 1 each ONCE ONE Administration Oxycodone HCl 5 mg 08/22/21 13:48 08/22/21 13:58 Oxycodone 5mg Immediate Release Tablet PO 08/22/21 13:49 5 mg ONCE ONE Administration Medical Decision Narrative: In summary this is a 70-year-old male with history of dementia presenting to the emergency department with severe low back pain, falls. Patient clinically stable on arrival. He is very weak upon standing. Will obtain CBC, CMP, urinalysis, ESR, CRP, MRI of the lumbar spine. Lidocaine patch applied. Patient given oxycodone for pain Laboratory results show slight hypokalemia at 3.3. Renal function is adequate. Glucose is elevated at 155. No significant anemia or leukocytosis. Inflammatory markers a
[2021-08-22 13:10] LABS: Coronavirus 19, PCR Not Detected (NotDetected); Influenza A, PCR Not Detected (NotDetected); Influenza B, PCR Not Detected (NotDetected)
[2021-08-22 13:17] LABS: Basophils # 0.1 K/mm3 (0-0.2); Basophils % 0.4 % (0.1-2.0); Eosinophils # 0.1 K/mm3 (0.0-0.4); Eosinophils % 0.7 % (0.1-12.0); Hematocrit 38.7 % (42.0-52.0); Lymphocytes # 1.1 K/mm3 (0.7-4.5); Lymphocytes % 7.6 % (10-50); Mean Corpuscular HGB Conc 33.6 g/dL (31.8-35.4); Mean Corpuscular Hemoglobin 33.1 pg (27.0-31.2); Mean Corpuscular Volume 98.6 fl (80-94); Mean Platelet Volume 11.5 fl (7.4-10.4); Monocytes % 6.9 % (1.7-9.3); Neutrophils # 11.8 K/mm3 (1.8-7.8); Neutrophils % 84.5 % (37.0-80.0); Platelet Count 130 K/mm3 (142-424); Red Blood Count 3.92 M/mm3 (4.60-6.20); Red Cell Distribution Width 13.9 % (11.5-17.5)
[2021-08-22 13:23] LABS: Alanine Aminotransferase 57 U/L (12-78); Albumin/Globulin Ratio 1.3 (1.1-1.8); Alkaline Phosphatase 72 U/L (38-126); Anion Gap 9.3 mEq/L (5-15); Aspartate Amino Transferase 59 U/L (17-59); Bilirubin,Total 1.3 mg/dl (0.2-1.3); Blood Urea Nitrogen 25 mg/dl (9-20); Calcium 9.6 mg/dl (8.4-10.2); Carbon Dioxide 32 mmol/L (22.0-30.0); Chloride 98 mmol/L (98-107); Creatinine Clearance Estimated 89 mL/min (50-200); Estimated Glomerular Filt Rate 84 ml/min (>60); GFR (African American) 101 ML/MIN (>60); Globulin 3.2 g/dL (1.3-3.2); Glucose 155 mg/dl (74-100); Potassium 3.3 mmoL/L (3.5-5.1); Sodium 136 mmol/L (136-145); Total Protein,Serum 7.2 g/dl (6.3-8.2)
[2021-08-22 13:27] LABS: C-Reactive Protein 122.5 mg/L (0-4)
[2021-08-22 14:16] LABS: Appearance,Urine CLEAR (Clear); Bilirubin,Urine Negative (Negative); Blood, Urine 1+ (Negative); Color,Urine YELLOW (Yellow); Glucose,Urine (UA) Negative (Negative); Ketones,Urine Negative (Negative); Leukocyte Esterase,Urine Negative (Negative); Microscopic, Urine URINE MICROSCOPIC (MICROSCOPIC); Nitrate,Urine Negative (Negative); Protein,Urine TRACE (Negative)
[2021-08-22 14:27] LABS: Bacteria,Urine Trace /lpf; RBC,Urine Occasional #/hpf (0-3); WBC,Urine Occasional #/hpf (0-3)
--- NOTE | 2021-08-22 14:44 | PC.NURSE ---
per landscape technician pt lidocaine patch that he has on has to be removed r/t pt going to MRI. ER notified of this and lidocaine patch removed.
--- NOTE | 2021-08-22 14:46 | PC.NURSE ---
patient to MRI by wheelchair with waste management recycling technician
--- NOTE | 2021-08-22 14:48 | MR_ITS ---
FINAL REPORT CLINICAL HISTORY: LOWER BACK PAIN. UNABLE TO WALK. LOWER EXTREMITY WEAKNESS. BEST POSSIBLE IMAGES. PT HAS DEMENTIA. FINDINGS: Multiplanar MR imaging of the lumbar spine was performed without contrast. On the sagittal T2-weighted images, disc degeneration is seen at multiple levels. Endplate changes are seen at multiple levels. The vertebral alignment is normal. There is no evidence of fracture. The conus has an unremarkable appearance. L1-2: An annular bulge is present. Facet arthropathy and osteophytes are present. There is mild right and moderate left neural foraminal narrowing. L2-3: An annular bulge is present. Facet arthropathy and osteophytes are present. There is mild right and moderate left neural foraminal narrowing. There is mild central canal stenosis with an AP diameter of the thecal sac of 7 mm. L3-4: An annular bulge is present. Facet arthropathy and osteophytes are present. There is moderate bilateral neural foraminal narrowing. There is moderate central canal stenosis with AP diameter of the thecal sac of 5 mm. L4-5: An annular bulge is present. Facet arthropathy and osteophytes are present. There is increased T2 signal in the disc with significant endplate changes. It is uncertain if this represents severe endplate degeneration/inflammatory change or discitis/osteomyelitis. There is severe bilateral neural foraminal narrowing. There is moderate central canal stenosis with an AP diameter of the thecal sac of 5 mm. L5-S1: An annular bulge and facet arthropathy are present with mild bilateral neural foraminal narrowing. IMPRESSION: Severe endplate degeneration/inflammatory change versus discitis/osteomyelitis at L4-5. This could be further evaluated with follow-up MRI with and without contrast in 4-6 weeks or sooner if symptoms progress. Multilevel degenerative disc disease and spondylosis with multilevel central canal stenosis. Reviewed, Interpreted and Dictated by Seferino Christy III, MD Transcribed by Chiquis Tejada Authenticated by Seferino Christy III, MD on 08/22/2021 04:26:15 PM [facility]
[2021-08-22 14:57] LABS: Erythrocyte Sedimentation Rate 120 mm/hr (0-20)
--- NOTE | 2021-08-22 15:02 | PC.NURSE ---
contacting Dr. Ferrera office for ED MD
--- NOTE | 2021-08-22 15:04 | PC.NURSE ---
JENNY CARR on phone with Dr. Aguillon
--- NOTE | 2021-08-22 15:24 | HMH.PHAINT ---
MEDICATION RECONCILIATION COMPLETED ON PATIENT USING EXTERNAL FILL HISTORY FROM PHARMACY. -CHIRAG CARTER, CHRISTOPHED
--- NOTE | 2021-08-22 16:32 | PC.NURSE ---
Spoke with Antonette in pain management regarding admission
--- NOTE | 2021-08-22 16:38 | PC.NURSE ---
second floor staff states pts assigned room just got cleaned, states room is not ready yet, asked them to call down to get report when room is ready. Spoke with Esperanza at blood bank credit clerk desk.
--- NOTE | 2021-08-22 16:58 | PC.NURSE ---
Report given Becki MARISCAL
--- NOTE | 2021-08-22 17:17 | PC.NURSE ---
Pt arrived to the floor at this time
[2021-08-22 17:32] VITALS: BP 149/82; PULSE 69; RESP 16; TEMP 36.9; O2SAT 93; BMI 26.3
[2021-08-22 17:35] VITALS: BP 164/93; PULSE 82; RESP 16; TEMP 37.2; O2SAT 96
--- NOTE | 2021-08-22 18:15 | HMH.HP ---
*Admission Date: 08/22/21 *Chief complaint: back pain; Falls *History of present illness: Mr Nicholas is a 70-year-old male patient with a history of coronary artery disease, myocardial infarction in 2018, atrial fibrillation, non-STEMI in 2019, hypertension, hypothyroidism, hyperlipidemia, esophageal reflux, and tobacco use, and dementia who was brought to [facility] emergency room for evaluation with back pain and difficulty with walking resulting in multiple falls. He has been complaining to his daughter with back with back pain for the past few weeks. Sometimes the pain was with walking and other times at rest. He has severe dementia making it hard for him to relate his symptoms. He has had difficulty with standing. When he falls they usually have to call the fire department emergency medicine to help him. He does use a walker and sometimes ambulates in a wheelchair. He lives with his daughter and she is his caregiver. He has had incontinence but no fevers or chills. He was seen in the office of [facility] on 08/19/2021 with a back pain he was started on a muscle relaxant and given Depo-Medrol. An MRI was to be scheduled at [facility] in [place]. Patient has had no Patient is unable to give history due to his dementia and information is obtained from his daughter. She states the pain progressively worsened and when he fell this last time EMS assisted him off the floor and brought him to the hospital for evaluation. In the emergency room he had a lidocaine patch placed on the back was given oxycodone. MRI was scheduled. He was then admitted. His daughter states that he eats satisfactory but mostly likes sweets and carbohydrates. She states he has no difficulty with voiding although he is incontinent. His bowels do move. He can walk with a walker. [facility] History Medical History: Reports:: Atrial Fibrillation, Cardiomyopathy, Coronary Artery Disease, Dementia, Depression, Hyperlipidemia, Hypertension, Myocardial Infarction, Palpitations, Valvular Heart Disease Denies:: Cancer, Diabetes Mellitus Type 1, Diabetes Mellitus Type 2, Internal Pacemaker, MRSA *Have you ever received a pneumonia vaccine?: No *Have you received a flu vaccine this season?: No Other Medical History: Reports: Arthritis, Hypothyroidism, Other Laterality Cases: Bilateral: Tonsillectomy Other Surgeries: Yes: CABG, Cardiac Catheterization, Cholecystectomy, Colonoscopy, Coronary Stent. No: Pacemaker Amputation: No Fractures: No - *Social History Smoking Status: Former smoker Tobacco Type: cigarettes # Packs/Day (cigarettes): 1 #Yrs smoked (if former smoker): 50 Alcohol Intake: former Alcohol Intake Frequency:: 3 or more drinks per day Substance Use Type: denies use *Occupational Status:: disabled Household Members: family *Travel in the last 8 weeks: None - Psychiatric History Pschychiatric History:: Reports:: Depression Family Hx:: Cancer, Heart Attack, Hypertension, Stroke Review of Systems - Constitutional Reports weakness, Denies night sweats - ENT Denies abnormal hearing, Denies difficulty swallowing, Denies headache(s) - *Cardiovascular Denies chest pain, Denies shortness of breath - *Respiratory Denies cough, Denies shortness of breath - *Gastrointestinal Denies abdominal pain, Denies loose stools, Denies vomiting - *Genitourinary Denies difficulty urinating - *Musculoskeletal Reports abnormal walking, Reports back pain, Reports muscle weakness - *Neurologic Reports confusion, Reports unsteadiness, Reports frequent falls, Reports memory loss, Reports weakness, Denies seizure-like activity, Denies headache(s), Denies numbness - Psychiatric Reports abnormal sleep pattern, Reports confusion, Reports depression Meds Home Medications Medication Instructions Recorded Confirmed Type loratadine 10 mg tablet 10 mg PO DAILY 11/20/18 08/22/21 History sertraline 50 mg tablet 50 mg PO DAILY tab 05/21/19
[2021-08-22 20:00] VITALS: BP 102/40; PULSE 71; RESP 17; TEMP 36.8; O2SAT 92
[2021-08-23] VITALS: BP 129/78; PULSE 62; RESP 17; TEMP 36.8; O2SAT 91
[2021-08-23 04:00] VITALS: BP 145/63; PULSE 67; RESP 17; TEMP 36.4; O2SAT 92
--- NOTE | 2021-08-23 04:48 | PC.NURSE ---
Addendum entered by Elisas Silva RN 08/23/21 04:55: pt remains confused, bed alarm on this shift Original Note: pt has rested t/o shift, has been incontinent of urine this shift, remains on room air with O2 sats 91-92%, has complained of pain one time and was treated per MAR
[2021-08-23 04:56] VITALS: BMI 26.9
[2021-08-23 06:32] LABS: Anion Gap 9.4 mEq/L (5-15); Blood Urea Nitrogen 23 mg/dl (9-20); Carbon Dioxide 31 mmol/L (22.0-30.0); Chloride 99 mmol/L (98-107); Creatinine Clearance Estimated 89 mL/min (50-200); Estimated Glomerular Filt Rate 96 ml/min (>60); GFR (African American) 116 ML/MIN (>60); Glucose 122 mg/dl (74-100); Potassium 3.4 mmoL/L (3.5-5.1); Sodium 136 mmol/L (136-145)
[2021-08-23 08:00] VITALS: BP 142/79; PULSE 62; RESP 16; TEMP 36.6; O2SAT 94
--- NOTE | 2021-08-23 08:46 | HMH.ACPN2 ---
Internal Medicine - PN: Subj *Date: 08/23/21 *Time: 09:06 Interval history: Patient awakened for assessment. He states his back feels a lot better. He is hungry for breakfast. He denies chest pain and shortness of breath. Exam Vital signs and Labs for Last 24 Hours: Temp Pulse Resp BP Pulse Ox 97.9 F 62 16 142/79 H 94 L 08/23/21 08:00 08/23/21 08:00 08/23/21 08:00 08/23/21 08:00 08/23/21 08:00 Laboratory Results - last 24 hr 08/22/21 13:03: WBC 14.0 H, RBC 3.92 L, Hgb 13.0 L, Hct 38.7 L, MCV 98.6 H, MCH 33.1 H, MCHC 33.6, RDW 13.9, Plt Count 130 L, MPV 11.5 H, Neut % (Auto) 84.5 H, Lymph % (Auto) 7.6 L, [place] % (Auto) 6.9, Eos % (Auto) 0.7, Baso % (Auto) 0.4, Neut # (Auto) 11.8 H, Lymph # (Auto) 1.1, [place] # (Auto) 1.0, Eos # (Auto) 0.1, Baso # (Auto) 0.1, ESR 120 H 08/22/21 13:03: Sodium 136, Potassium 3.3 L, Chloride 98, Carbon Dioxide 32 H, Anion Gap 9.3, BUN 25 H, Creatinine 0.90, Estimated Creat Clear 89, Estimated GFR 84, Est GFR ( Amer) 101, Glucose 155 H, Calcium 9.6, Total Bilirubin 1.3, AST 59, ALT 57, Alkaline Phosphatase 72, C-Reactive Protein 122.5 H, Total Protein 7.2, Albumin 4.0, Globulin 3.2, Albumin/Globulin Ratio 1.3 08/22/21 13:03: SARS-CoV-2 (PCR) Not detected, Influenza A Untype (PCR) Not detected, Influenza Type B (PCR) Not detected 08/22/21 14:08: Urine Color Yellow, Urine Appearance Clear, Urine pH 6.0, Ur Specific [place] 1.020, Urine Protein Trace, Urine Glucose (UA) Negative, Urine Ketones Negative, Urine Blood 1+, Urine Nitrate Negative, Urine Bilirubin Negative, Urine Urobilinogen 1.0, Ur Leukocyte Esterase Negative, Urine RBC Occasional, Urine WBC Occasional, Ur Squamous Epith Cells None, Urine Bacteria Trace 08/23/21 05:45: Sodium 136, Potassium 3.4 L, Chloride 99, Carbon Dioxide 31 H, Anion Gap 9.4, BUN 23 H, Creatinine 0.80, Estimated Creat Clear 89, Estimated GFR 96, Est GFR ( Amer) 116, Glucose 122 H D, Calcium 9.0 I & O for Last 24 hours: Intake & Output 08/20/21 08/21/21 08/22/21 08/23/21 11:59 11:59 11:59 11:59 Intake Total 120 / 120 Balance 120 / 120 Weight 199 lb - Constitutional no acute distress Comments: Back pain with any movement from side to side. - *Routine Respiratory Exam Present: CTA bilaterally - *Routine Cardiovascular Exam Present: RRR - *Routine Abdominal Exam Present: soft, normoactive bowel sounds. Absent: tenderness - *Routine Extremities Exam Absent: edema, calf tenderness - Routine Back/Spine/Pelvis Exam Comments: Poor mobility. Back pain with movement in the bed. - *Routine Neurological Exam Present: alert Assessment and Plan (1) Back pain Status: Acute Qualifiers: Back pain location: low back pain Chronicity: acute Back pain laterality: midline Sciatica presence: with sciatica Sciatica laterality: sciatica laterality unspecified Qualified Code(s): M54.40 - Lumbago with sciatica, unspecified side Category: Medical Code(s): M54.9 - Dorsalgia, unspecified (2) Coronary artery disease Status: Chronic Category: Medical Code(s): I25.10 - Atherosclerotic heart disease of [place] coronary artery without angina pectoris (3) Hypothyroidism Status: Chronic Category: Medical Code(s): E03.9 - Hypothyroidism, unspecified (4) Dementia Status: Chronic Qualifiers: Dementia type: unspecified type Dementia behavioral disturbance: without behavioral disturbance Qualified Code(s): F03.90 - Unspecified dementia without behavioral disturbance Category: Medical Code(s): F03.90 - Unspecified dementia without behavioral disturbance (5) Unable to walk Status: Acute Category: Medical Code(s): R26.2 - Difficulty in walking, not elsewhere classified (6) Fall Status: Acute Qualifiers: Encounter type: initial encounter Qualified Code(s): W19.XXXA - Unspecified fall, initial encounter Category: Medical Code(s): W19.XXXA - Unspecified fall, initial en
--- NOTE | 2021-08-23 08:50 | P.CONPHA_ITS ---
[facility] Pharmacy VTE Monitoring - Patient Demographics Admission date: 08/22/21 Report Date: 08/23/21 Time: 08:50 Allergies/Adverse Reactions: Patient Allergies heparin Allergy (Verified 04/12/21 13:49) Height: 1.83 m Weight: 90.265 kg Patient Problems: Current Active Problems Back pain (Acute) Unable to walk (Acute) Dementia (Chronic) Coronary artery disease (Chronic) Hypothyroidism (Chronic) Fall (Acute) - VTE Risk Labs: VTE Related Lab Results Hgb 13.0 g/dL (14.1-18.0) L 08/22/21 13:03 Hct 38.7 % (42.0-52.0) L 08/22/21 13:03 Plt Count 130 K/mm3 (142-424) L 08/22/21 13:03 BUN 23 mg/dl (9-20) H 08/23/21 05:45 Creatinine 0.80 mg/dl (0.66-1.25) 08/23/21 05:45 Estimated Creat Clear 89 mL/min (50-200) 08/23/21 05:45 Was VTE Risk Assessment Performed: No Clinical Trial Participant: No - Prophylaxis VTE Prophylaxis Ordered?: Yes Types of VTE Prophylaxis: TEDS Knee High Location of Applied Device: Bilateral Lower Extremeties
--- NOTE | 2021-08-23 10:02 | HMH.OTEV ---
OT Inpatient Evaluation Rehab OT IP Evaluation Start: 08/23/21 08:48 Freq: ONCE Status: Complete Protocol: Document 08/23/21 09:55 CLAIRE (Rec: 08/23/21 10:02 CLAIRE [id number]) Rehab OT IP Assessment Subjective History Mr Nicholas is a 70-year-old male patient with a history of coronary artery disease, myocardial infarction in 2018, atrial fibrillation, non- STEMI in 2019, hypertension, hypothyroidism, hyperlipidemia , esophageal reflux, and tobacco use, and dementia who was brought to [facility] emergency room for evaluation with back pain and difficulty with walking resulting in multiple falls. He has been complaining to his daughter with back with back pain for the past few weeks. Sometimes the pain was with walking and other times at rest. He has severe dementia making it hard for him to relate his symptoms. He has had difficulty with standing. When he falls they usually have to call the fire department emergency medicine to help him. He does use a walker and sometimes ambulates in a wheelchair. He lives with his daughter and she is his caregiver. He has had incontinence but no fevers or chills. He was seen in the office of [facility] on 2021 with a back pain he was started on a muscle relaxant and given Depo-Medrol. An MRI was to be scheduled at [facility] in [place]. Patient has had no Patient is unable to give history due to his dementia and information is obtained from his daughter. She states
[2021-08-23 10:41] VITALS: BMI 26.9
--- NOTE | 2021-08-23 11:37 | SW/DCPLANNER ---
Addendum entered by [facility] 08/25/21 13:40: All discharge information has been faxed to Carla ordonez/ Jhonny Gaffney. Addendum entered by [facility] 08/25/21 12:05: Per Carla this patient has been approved for admission at [facility] today. COVID swab will be collected prior to discharge. Patient's family is aware and stated they will be present at [facility] today. Carla ordonez/ Jhonny Gaffney stated that she request that patient not discharge from [facility] till 3PM today. Addendum entered by [facility] 08/25/21 09:37: Per Carla with [facility]: auth is still pending at time. Addendum entered by [facility] 08/24/21 13:54: Carla ordonez/ Jhonny Gaffney has stated that she can accept this patient pending auth from insurance. Precert has been started and I have updated patient's family. Addendum entered by [facility] 08/24/21 10:40: Carla with [facility] is currently reviewing patient information. Addendum entered by [facility] 08/23/21 11:57: Family is interested in placement at [facility]: patient information will be faxed to Carla with [facility]. Original Note: I spoke with patient and his daughter regarding plans once medically stable for discharge. Daughter stated that patient resides at home with his other daughter and son in law. Daughter stated that he does okay at home, someone is home with him 05/11 but they are interested in short term placement. Daughter asked that she be able to speak with her sister prior to making a decision regarding which facility. Daughter will contact me back today regarding preferred facility. Discharge date is unknown at this time.
[2021-08-23 12:00] VITALS: BP 130/76; PULSE 60; RESP 17; TEMP 36.6; O2SAT 95
--- NOTE | 2021-08-23 12:02 | HMH.PTEV ---
Physical Therapy Evaluation Rehab PT IP Evaluation Start: 08/23/21 08:48 Freq: ONCE Status: Active Protocol: Document 08/23/21 11:58 PHORFRANKLIN (Rec: 08/23/21 12:01 PHORNE [id number]) Subjective/History History History 70 yowm adm to [facility] with falls and back pain, has hx of dementia at baseline. He lives with daughter, 1-2 steps to enter the home, and is generally independent with all mobility prior to severe acute back pain. Subjective Subjective Pt c/o boyd in low back with transfers, but agrees to ambulate. Rehab PT IP Eval Objective Appearance Patient Behavior Appropriate,Confused Patient Orientation Person,Place Difficulty following instructions mild Speech Pattern Clear Ambulation Patient Able to Ambulate Yes Ambulation Observation IP General Gait Pattern Observation Wide Based Gait Ambulation Distance (feet) 40 Ambulation Assistive Device None Ambulation Ability Minimal x 1 (25% assist) Balance Ability to Arise Able, uses arms to help Sitting Balance Steady, safe Standing Balance Unsteady Dynamic Sitting Balance Ability Good Dynamic Standing Balance Ability Poor Transfers Bed Transfer Ability Minimal x 1 (25% assist) Chair Transfer Ability Minimal x 1 (25% assist) Sit to Stand Bed Transfer Ability Minimal x 1 (25% assist) Sit to Stand Chair Transfer Ability Minimal x 1 (25% assist) Rehab PT IP prob,goals,plan Problems Date of Evaluation: 08/23/21 PT IP Problems Bed Mobility,Transfers,Gait, Self care Rehab Potential Rehab Potential Good Plan PT Intervention Plan Bed Mobility,Transfers,Gait, Self care,Therapeutic Exercise PT Plan Frequency BID Duration LOS Discharge Goals Bed Transfer Ability Contact Guard/Hand Hold Sit to Stand Chair Transfer Ability Contact Guard/Hand Hold Ambulation Assistive Device Rolling Walker Ambulation Distance (feet) 60 Discharge Plan PT Discharge Plan Pt is currently most appropriate for rehab placement once medically stable. G -code Required No Eval Complexity Eval Charge Codes 04255 - High Complexity PHYSICIAN CERTIFICATION: I certify the specified therapy services for
[2021-08-23 16:00] VITALS: BP 141/78; PULSE 72; RESP 20; TEMP 36.8; O2SAT 95
--- NOTE | 2021-08-23 18:09 | PC.NURSE ---
Pt has had a uneventful day. Bed alarm on and working for pt's safety. Pt has been up to chair this shift. VSS. No acute changes. No c/o's of pain this shift.
[2021-08-23 20:00] VITALS: BP 136/90; PULSE 73; RESP 20; TEMP 37.1; O2SAT 94
[2021-08-24] VITALS: BP 132/71; PULSE 73; RESP 22; TEMP 36.9; O2SAT 94
[2021-08-24 04:00] VITALS: BP 141/75; PULSE 68; RESP 22; TEMP 36.9; O2SAT 93
--- NOTE | 2021-08-24 04:00 | PC.NURSE ---
PT RESTED WELL MOST OF THE NIGHT, PT IS STILL CONFUSED TO PLACE AND YEAR, AND BIRTHDATE ON OCCASION, NO COMPLAINTS OF PAIN THIS SHIFT, VSS, PT INCONTINENT OF URINE, NO OTHER ISSUES NOTED.
[2021-08-24 05:00] VITALS: BMI 26.9
[2021-08-24 08:00] VITALS: BP 139/66; PULSE 71; RESP 16; TEMP 36.6; O2SAT 93; O2SAT 95
--- NOTE | 2021-08-24 08:29 | HMH.ACPN2 ---
<Crista Moraes - Last Filed: 08/24/21 08:29> Internal Medicine - PN: Subj *Date: 08/24/21 *Time: 08:29 Interval history: Patient states he feels a little bit better. He denies any pain this morning. He says he sat up in the chair yesterday but still has difficulty walking. He was able to eat some breakfast this morning. Exam Vital signs and Labs for Last 24 Hours: Temp Pulse Resp BP Pulse Ox 98.4 F 68 22 141/75 H 93 L 08/24/21 04:00 08/24/21 04:00 08/24/21 04:00 08/24/21 04:00 08/24/21 04:00 I & O for Last 24 hours: Intake & Output 08/21/21 08/22/21 08/23/21 08/24/21 11:59 11:59 11:59 11:59 Intake Total 120 / 120 360 / 360 Balance 120 / 120 360 / 360 Weight 198 lb 15.828 oz 198 lb 9.6 oz - Constitutional no acute distress - *Routine Respiratory Exam Present: CTA bilaterally - *Routine Cardiovascular Exam Present: RRR - *Routine Abdominal Exam Present: soft, normoactive bowel sounds. Absent: tenderness - *Routine Extremities Exam Absent: cyanosis, clubbing, edema - *Routine Skin Exam Present: warm. Absent: rash - *Routine Neurological Exam Present: alert, oriented X3 Assessment and Plan (1) Back pain Status: Acute Qualifiers: Back pain location: low back pain Chronicity: acute Back pain laterality: midline Sciatica presence: with sciatica Sciatica laterality: sciatica laterality unspecified Qualified Code(s): M54.40 - Lumbago with sciatica, unspecified side Category: Medical Code(s): M54.9 - Dorsalgia, unspecified (2) Coronary artery disease Status: Chronic Category: Medical Code(s): I25.10 - Atherosclerotic heart disease of [place] coronary artery without angina pectoris (3) Hypothyroidism Status: Chronic Category: Medical Code(s): E03.9 - Hypothyroidism, unspecified (4) Dementia Status: Chronic Qualifiers: Dementia type: unspecified type Dementia behavioral disturbance: without behavioral disturbance Qualified Code(s): F03.90 - Unspecified dementia without behavioral disturbance Category: Medical Code(s): F03.90 - Unspecified dementia without behavioral disturbance (5) Unable to walk Status: Acute Category: Medical Code(s): R26.2 - Difficulty in walking, not elsewhere classified (6) Fall Status: Acute Qualifiers: Encounter type: initial encounter Qualified Code(s): W19.XXXA - Unspecified fall, initial encounter Category: Medical Code(s): W19.XXXA - Unspecified fall, initial encounter - Assessment and plan all Dx Assessment and Plan for all problems:: He was seen by physical therapy yesterday and they felt he was appropriate for rehab placement once medically stable. Care management will work on placement. <Kamala Aguillon - Last Filed: 08/24/21 10:18> Internal Medicine - PN: Subj *Date: 08/24/21 *Time: 10:16 Exam Vital signs and Labs for Last 24 Hours: Temp Pulse Resp BP Pulse Ox 97.9 F 71 16 139/66 93 L 08/24/21 08:00 08/24/21 08:00 08/24/21 08:00 08/24/21 08:00 08/24/21 08:00 I & O for Last 24 hours: Intake & Output 08/21/21 08/22/21 08/23/21 08/24/21 11:59 11:59 11:59 11:59 Intake Total 120 / 120 360 / 360 Balance 120 / 120 360 / 360 Weight 198 lb 15.828 oz 198 lb 9.6 oz Assessment and Plan (1) Discitis of lumbosacral region Status: Acute Category: Medical Code(s): M46.47 - Discitis, unspecified, lumbosacral region (2) Back pain Status: Acute Qualifiers: Back pain location: low back pain Chronicity: acute Back pain laterality: midline Sciatica presence: with sciatica Sciatica laterality: sciatica laterality unspecified Qualified Code(s): M54.40 - Lumbago with sciatica, unspecified side Category: Medical Code(s): M54.9 - Dorsalgia, unspecified (3) Unable to walk Status: Acute Category: Medical Code(s): R26.2 - Difficulty in walking, not elsewhere classified (4) Fall Status:
[2021-08-24 11:02] LABS: Basophils % 0.4 % (0.1-2.0); Eosinophils # 0.1 K/mm3 (0.0-0.4); Eosinophils % 1.2 % (0.1-12.0); Hematocrit 39.1 % (42.0-52.0); Hemoglobin 13.2 g/dL (14.1-18.0); Lymphocytes # 0.8 K/mm3 (0.7-4.5); Lymphocytes % 7.1 % (10-50); Mean Corpuscular HGB Conc 33.9 g/dL (31.8-35.4); Mean Corpuscular Hemoglobin 33.1 pg (27.0-31.2); Mean Corpuscular Volume 97.8 fl (80-94); Mean Platelet Volume 10.8 fl (7.4-10.4); Monocytes # 0.6 K/mm3 (0.1-1.0); Monocytes % 5.5 % (1.7-9.3); Neutrophils % 85.8 % (37.0-80.0); Platelet Count 125 K/mm3 (142-424); Red Cell Distribution Width 14.1 % (11.5-17.5); White Blood Count 11.7 K/mm3 (4.8-10.8)
[2021-08-24 11:03] LABS: Anion Gap 12.7 mEq/L (5-15); Blood Urea Nitrogen 22 mg/dl (9-20); Calcium 9.3 mg/dl (8.4-10.2); Carbon Dioxide 28 mmol/L (22.0-30.0); Chloride 96 mmol/L (98-107); Creatinine Clearance Estimated 89 mL/min (50-200); Estimated Glomerular Filt Rate 84 ml/min (>60); GFR (African American) 101 ML/MIN (>60); Glucose 134 mg/dl (74-100); Potassium 3.7 mmoL/L (3.5-5.1); Sodium 133 mmol/L (136-145)
[2021-08-24 11:09] LABS: MANUAL DIFFERENTIAL MANUAL DIFFERENTIAL (MANUAL DIFF)
[2021-08-24 11:23] LABS: Lymphocytes % 27 % (10-50); Monocytes % 5 % (2-9); Neutrophils % 67 % (42-76); Platelet Estimate Normal; RBC Morphology Normal; Total Cells Counted 100
[2021-08-24 12:00] VITALS: BP 117/67; PULSE 73; RESP 18; TEMP 36.7; O2SAT 93
[2021-08-24 16:00] VITALS: BP 130/79; PULSE 69; RESP 16; TEMP 36.7; O2SAT 95
[2021-08-24 19:48] VITALS: BP 121/71; PULSE 70; RESP 20; TEMP 36.7; O2SAT 94
--- NOTE | 2021-08-25 03:21 | PC.NURSE ---
Addendum entered by Eve Mejia RN 08/25/21 06:35: Patient more oriented this am, he knows name, , and place. Original Note: Patient rested throughout night. Patient confused- could not recall his name this evening. Patient does have dementia. Bed alarm on for safety. Patient is incontinent and requires a brief. Patient compliant of back pain once during shift, medicated per JUN.
[2021-08-25 04:00] VITALS: BP 179/87; PULSE 66; RESP 21; TEMP 36.7; O2SAT 95
[2021-08-25 05:00] VITALS: BMI 26.2
[2021-08-25 08:00] VITALS: BP 124/72; PULSE 56; RESP 18; TEMP 36.3; O2SAT 96
--- NOTE | 2021-08-25 08:24 | HMH.ACPN2 ---
Internal Medicine - PN: Subj *Date: 08/25/21 *Time: 08:24 Interval history: Patient states he is feeling a little bit better today. He slept off and on and tried to eat some of his breakfast. He did sit up in a chair for a great portion of yesterday. His legs are still weak and he has to have help walking and transferring. Exam Vital signs and Labs for Last 24 Hours: Temp Pulse Resp BP Pulse Ox 98.0 F 66 21 179/87 H 95 08/25/21 04:00 08/25/21 04:00 08/25/21 04:00 08/25/21 04:00 08/25/21 04:00 Laboratory Results - last 24 hr 08/24/21 10:46: WBC 11.7 H, RBC 4.00 L, Hgb 13.2 L, Hct 39.1 L, MCV 97.8 H, MCH 33.1 H, MCHC 33.9, RDW 14.1, Plt Count 125 L, MPV 10.8 H, Neut % (Auto) 85.8 H, Lymph % (Auto) 7.1 L, [place] % (Auto) 5.5, Eos % (Auto) 1.2, Baso % (Auto) 0.4, Neut # (Auto) 10.0 H, Lymph # (Auto) 0.8, [place] # (Auto) 0.6, Eos # (Auto) 0.1, Baso # (Auto) 0.0, Total Counted 100, Neutrophils % (Manual) 67, Band Neutrophils % 1.0, Lymphocytes % (Manual) 27, Monocytes % (Manual) 5, Platelet Estimate Normal, RBC Morphology Normal 08/24/21 10:46: Sodium 133 L, Potassium 3.7, Chloride 96 L, Carbon Dioxide 28, Anion Gap 12.7, BUN 22 H, Creatinine 0.90, Estimated Creat Clear 89, Estimated GFR 84, Est GFR ( Amer) 101, Glucose 134 H, Calcium 9.3 I & O for Last 24 hours: Intake & Output 08/22/21 08/23/21 08/24/21 08/25/21 11:59 11:59 11:59 11:59 Intake Total 120 / 120 360 / 360 240 / 240 Output Total 400 / 400 Balance 120 / 120 360 / 360 -160 / -160 Weight 198 lb 15.828 oz 198 lb 9.6 oz 193 lb 12.8 oz - Constitutional no acute distress - *Routine Respiratory Exam Present: CTA bilaterally - *Routine Cardiovascular Exam Present: RRR - *Routine Abdominal Exam Present: soft, normoactive bowel sounds. Absent: tenderness - *Routine Extremities Exam Absent: cyanosis, clubbing, edema - *Routine Skin Exam Present: warm. Absent: rash - *Routine Neurological Exam Present: alert, oriented X3 Assessment and Plan (1) Discitis of lumbosacral region Status: Acute Category: Medical Code(s): M46.47 - Discitis, unspecified, lumbosacral region (2) Back pain Status: Acute Qualifiers: Back pain location: low back pain Chronicity: acute Back pain laterality: midline Sciatica presence: with sciatica Sciatica laterality: sciatica laterality unspecified Qualified Code(s): M54.40 - Lumbago with sciatica, unspecified side Category: Medical Code(s): M54.9 - Dorsalgia, unspecified (3) Unable to walk Status: Acute Category: Medical Code(s): R26.2 - Difficulty in walking, not elsewhere classified (4) Fall Status: Acute Qualifiers: Encounter type: initial encounter Qualified Code(s): W19.XXXA - Unspecified fall, initial encounter Category: Medical Code(s): W19.XXXA - Unspecified fall, initial encounter (5) Dementia Status: Chronic Qualifiers: Dementia type: unspecified type Dementia behavioral disturbance: without behavioral disturbance Qualified Code(s): F03.90 - Unspecified dementia without behavioral disturbance Category: Medical Code(s): F03.90 - Unspecified dementia without behavioral disturbance (6) Coronary artery disease Status: Chronic Category: Medical Code(s): I25.10 - Atherosclerotic heart disease of [place] coronary artery without angina pectoris (7) Hypothyroidism Status: Chronic Category: Medical Code(s): E03.9 - Hypothyroidism, unspecified - Assessment and plan all Dx Assessment and Plan for all problems:: Care management states he may have a bed at [facility] pending insurance approval.
--- NOTE | 2021-08-25 08:25 | HMH.ACPN2 ---
Internal Medicine - PN: Subj *Date: 08/25/21 *Time: 08:25 Interval history: The patient looks better this morning. He seems more alert and engaged. He seems more comfortable. He still admits to back pain. Exam Vital signs and Labs for Last 24 Hours: Temp Pulse Resp BP Pulse Ox 98.0 F 66 21 179/87 H 95 08/25/21 04:00 08/25/21 04:00 08/25/21 04:00 08/25/21 04:00 08/25/21 04:00 Laboratory Results - last 24 hr 08/24/21 10:46: WBC 11.7 H, RBC 4.00 L, Hgb 13.2 L, Hct 39.1 L, MCV 97.8 H, MCH 33.1 H, MCHC 33.9, RDW 14.1, Plt Count 125 L, MPV 10.8 H, Neut % (Auto) 85.8 H, Lymph % (Auto) 7.1 L, [place] % (Auto) 5.5, Eos % (Auto) 1.2, Baso % (Auto) 0.4, Neut # (Auto) 10.0 H, Lymph # (Auto) 0.8, [place] # (Auto) 0.6, Eos # (Auto) 0.1, Baso # (Auto) 0.0, Total Counted 100, Neutrophils % (Manual) 67, Band Neutrophils % 1.0, Lymphocytes % (Manual) 27, Monocytes % (Manual) 5, Platelet Estimate Normal, RBC Morphology Normal 08/24/21 10:46: Sodium 133 L, Potassium 3.7, Chloride 96 L, Carbon Dioxide 28, Anion Gap 12.7, BUN 22 H, Creatinine 0.90, Estimated Creat Clear 89, Estimated GFR 84, Est GFR ( Amer) 101, Glucose 134 H, Calcium 9.3 I & O for Last 24 hours: Intake & Output 08/22/21 08/23/21 08/24/21 08/25/21 11:59 11:59 11:59 11:59 Intake Total 120 / 120 360 / 360 240 / 240 Output Total 400 / 400 Balance 120 / 120 360 / 360 -160 / -160 Weight 198 lb 15.828 oz 198 lb 9.6 oz 193 lb 12.8 oz - *Routine HEENT Exam Head: Present: normocephalic Eye: Present: EOMI, PERRL ENT: Present: mucous membranes moist - *Routine Neck Exam Present: supple. Absent: lymphadenopathy - *Routine Respiratory Exam Present: CTA bilaterally - *Routine Cardiovascular Exam Present: RRR - *Routine Abdominal Exam Present: soft, normoactive bowel sounds. Absent: tenderness - *Routine Extremities Exam Absent: cyanosis, clubbing, edema - *Routine Skin Exam Present: warm, lesions (Facial excoriations). Absent: rash - *Routine Neurological Exam Present: alert, normal reflexes (2+ and equal at the patella). Absent: oriented X3 Assessment and Plan (1) Discitis of lumbosacral region Status: Acute Category: Medical Code(s): M46.47 - Discitis, unspecified, lumbosacral region (2) Back pain Status: Acute Qualifiers: Qualified Code(s): M54.40 - Lumbago with sciatica, unspecified side Category: Medical Code(s): M54.9 - Dorsalgia, unspecified (3) Unable to walk Status: Acute Category: Medical Code(s): R26.2 - Difficulty in walking, not elsewhere classified (4) Fall Status: Acute Qualifiers: Qualified Code(s): W19.XXXA - Unspecified fall, initial encounter Category: Medical Code(s): W19.XXXA - Unspecified fall, initial encounter (5) Dementia Status: Chronic Qualifiers: Qualified Code(s): F03.90 - Unspecified dementia without behavioral disturbance Category: Medical Code(s): F03.90 - Unspecified dementia without behavioral disturbance (6) Coronary artery disease Status: Chronic Category: Medical Code(s): I25.10 - Atherosclerotic heart disease of [place] coronary artery without angina pectoris (7) Hypothyroidism Status: Chronic Category: Medical Code(s): E03.9 - Hypothyroidism, unspecified - Assessment and plan all Dx Assessment and Plan for all problems:: Awaiting placement. Repeat labs. This patient will need a follow-up MRI of the low back as an outpatient.
[2021-08-25 09:00] LABS: Basophils # 0.2 K/mm3 (0-0.2); Basophils % 1.8 % (0.1-2.0); Eosinophils # 0.1 K/mm3 (0.0-0.4); Eosinophils % 0.8 % (0.1-12.0); Hematocrit 40.9 % (42.0-52.0); Hemoglobin 13.4 g/dL (14.1-18.0); Lymphocytes # 1.1 K/mm3 (0.7-4.5); Lymphocytes % 9.2 % (10-50); Mean Corpuscular HGB Conc 32.8 g/dL (31.8-35.4); Mean Corpuscular Hemoglobin 33.2 pg (27.0-31.2); Mean Corpuscular Volume 101.1 fl (80-94); Monocytes # 0.6 K/mm3 (0.1-1.0); Monocytes % 5.3 % (1.7-9.3); Neutrophils # 9.6 K/mm3 (1.8-7.8); Platelet Count 140 K/mm3 (142-424); Red Blood Count 4.05 M/mm3 (4.60-6.20); Red Cell Distribution Width 14.1 % (11.5-17.5); White Blood Count 11.6 K/mm3 (4.8-10.8)
[2021-08-25 09:10] LABS: Anion Gap 9.3 mEq/L (5-15); Blood Urea Nitrogen 26 mg/dl (9-20); Calcium 9.3 mg/dl (8.4-10.2); Carbon Dioxide 32 mmol/L (22.0-30.0); Chloride 98 mmol/L (98-107); Creatinine Clearance Estimated 87 mL/min (50-200); Estimated Glomerular Filt Rate 84 ml/min (>60); GFR (African American) 101 ML/MIN (>60); Glucose 139 mg/dl (74-100); Potassium 3.3 mmoL/L (3.5-5.1); Sodium 136 mmol/L (136-145)
--- NOTE | 2021-08-25 12:12 | HMH.DCSUM ---
General - General Admission date:: 08/22/21 Discharge date: 08/25/21 HPI HPI: Mr Nicholas is a 70-year-old male patient with a history of coronary artery disease, myocardial infarction in 2018, atrial fibrillation, non-STEMI in 2019, hypertension, hypothyroidism, hyperlipidemia, esophageal reflux, and tobacco use, and dementia who was brought to [facility] emergency room for evaluation with back pain and difficulty with walking resulting in multiple falls. He has been complaining to his daughter with back with back pain for the past few weeks. Sometimes the pain was with walking and other times at rest. He has severe dementia making it hard for him to relate his symptoms. He has had difficulty with standing. When he falls they usually have to call the fire department emergency medicine to help him. He does use a walker and sometimes ambulates in a wheelchair. He lives with his daughter and she is his caregiver. He has had incontinence but no fevers or chills. He was seen in the office of [facility] on 08/19/2021 with a back pain he was started on a muscle relaxant and given Depo-Medrol. An MRI was to be scheduled at [facility] in [place]. Patient is unable to give history due to his dementia and information is obtained from his daughter. She states the pain progressively worsened and when he fell this last time EMS assisted him off the floor and brought him to the hospital for evaluation. In the emergency room he had a lidocaine patch placed on the back was given oxycodone. MRI was scheduled. He was then admitted. His daughter states that he eats satisfactory but mostly likes sweets and carbohydrates. She states he has no difficulty with voiding although he is incontinent. His bowels do move. He can walk with a walker. Hospital Course Hospital Course: Patient's lumbar spine MRI showed severe endplate degenerative/inflammatory changes versus discitis/osteomyelitis at L4-5. He was admitted for pain management as well as steroids and care management was consulted. Physical therapy and Occupational Therapy were also consulted. They felt the patient would need rehab placement. His pain did improve during admission and he was able to sit up in a chair. He still had difficulty and needed assistance with transferring and walking. He began eating small amounts. His IV steroids were switched to oral prednisone. A bed was found for him at [facility] and he was stable to be discharged for rehab. He will need a follow-up MRI of the low back as an outpatient. Objective Vital signs: Temp Pulse Resp BP Pulse Ox 98.0 F 66 21 179/87 H 95 08/25/21 04:00 08/25/21 04:00 08/25/21 04:00 08/25/21 04:00 08/25/21 04:00 Narrative: - Constitutional no acute distress Comments: Tries to answer questions. Smiles when he speaks to you. Daughter is in the room and answered and incorrect. - *Routine HEENT Exam Head: Present: normocephalic, other (Several scabs on forehead where he has been picking) Eye: Present: PERRL. Absent: conjunctival icterus, scleral injection, conjunctivae pink ENT: Present: mucous membranes moist, oropharynx clear - *Routine Neck Exam Present: supple, carotid bruit (Process radiating murmur). Absent: lymphadenopathy, thyromegaly - *Routine Respiratory Exam Present: CTA bilaterally (Anteriorly and posteriorly) - *Routine Cardiovascular Exam Present: RRR, murmur, gallop - *Routine Abdominal Exam Present: soft, normoactive bowel sounds, surgical scars. Absent: tenderness, distended - *Routine Rectal Exam Rectal:: deferred - *Routine Genitalia Exam Genitalia:: deferred - *Routine Extremities Exam Present: full ROM, pulses intact. Absent: edema, calf tenderness - Routine Back/Spine/Pelvis Exam Back/Spine: Present: paraspinal tenderness, vertebral tenderness Comments: Difficulty with moving from side to side - *Routine Neurological Exam Presen
[2021-08-25 12:46] LABS: Coronavirus 19, PCR Not Detected (NotDetected); Influenza A, PCR Not Detected (NotDetected); Influenza B, PCR Not Detected (NotDetected)
--- NOTE | 2021-08-25 14:34 | PC.NURSE ---
Spoke to case management pt was accepted to [facility], but asked us not to send pt till after 1500. Pt's daughter is taking him. She will not be here till after 1600.
--- NOTE | 2021-08-25 15:22 | PC.NURSE ---
Called report to Dio MARISCAL @ [facility] [phone].
--- NOTE | 2021-08-25 15:31 | PC.NURSE ---
Called and spoke with nuris. Left a message for narendra to see if he can finalize pts medications list for d/c. Pal is already left the office for the day.
[2021-08-25 16:00] VITALS: BP 131/69; PULSE 71; RESP 20; TEMP 36.3; O2SAT 94
--- NOTE | 2021-08-28 15:18 | CARE MANAGER ---
Contacted [facility] Gaffney related to patient follow up from discharge. Nurse states he is doing well and denies any questions or concerns.
--- NOTE | 2021-09-20 19:54 | PC.NURSE ---
Spoke with Pharmacy at [facility] requesting list of IV abx from admission.
== END 2021-08-25 18:16 ==
LOC: ER 14:47 → 2ND 16:37
PROVIDERS: Admitting Provider Family Medicine; Emergency Provider Emergency Medicine; PCP Family Medicine; Visit Provider Family Medicine
DX: M46.47 Discitis, unspecified, lumbosacral region; R29.6 Repeated falls; I25.10 Atherosclerotic heart disease of native coronary artery without angina pectoris; I25.2 Old myocardial infarction; I48.91 Unspecified atrial fibrillation; I10 Essential (primary) hypertension; E03.9 Hypothyroidism, unspecified; F03.90 Unspecified dementia, unspecified severity, without behavioral disturbance, psychotic disturbance, mood disturbance, and anxiety; Z79.02 Long term (current) use of antithrombotics/antiplatelets; Z79.899 Other long term (current) drug therapy; Z99.3 Dependence on wheelchair; Z95.5 Presence of coronary angioplasty implant and graft; Z20.822 Contact with and (suspected) exposure to COVID-19
CPT/HCPCS: G0378; 36415; 71045; 72148; 76376; 80048; 80053; 81001; 85007; 85025; 85651; 86140; 97110; 97116; 97163; 97165; 97530; 99285; C9803; U0003; U0005